=== PATIENT | female | born 1955 | race Caucasian/White ===

== ENCOUNTER 2019-06-20 04:04 | Inpatient (IN) | payer OTHER, MEDICARE ==
[~2019-06-20] VITALS: Ht 167.6 cm; Wt 90.7 kg
--- NOTE | ~2019-06-20 | HC ---
[facility] [place] [address] CONSULTATION Name: FANNY LUCIA Stevo Room #: 460-P [facility] IN .R.#: [id number] Admission: 06/20/19 Attend Phys: Mehdi Rogel MD Discharge: Date of : 53 Report #: [id number] THIS REPORT FOR: //name// CC: Mehdi Rogel REASON FOR CONSULTATION: End-stage renal disease. REASON FOR PRESENTATION: Abdominal pain. HISTORY OF PRESENT ILLNESS: A 64-year-old with history of end-stage renal disease. She is maintained on hemodialysis every Sunday, Sunday and Sunday. She presented reporting to the ER that she has been having abdominal pain with nausea and vomiting. Abdominal pain was reported to be diffuse. The patient is known to have diverticulitis, status post colostomy for perforated diverticulitis. She reported no change in her output. No fever or chills. Initial imaging of the abdomen was concerning for an intestinal obstructions for which the patient was admitted to be evaluated by the surgical team. Surgical evaluation was done. It was not felt that the patient is in need for any surgical intervention. NG tube was placed. I am being consulted to manage the patient's end-stage renal disease. PAST MEDICAL HISTORY: Extensive and includes the followin. End-stage renal disease, maintained on hemodialysis every Sunday, Sunday and Sunday. 2. History of systemic lupus erythematosus. 3. Hypertension. 4. Pulmonary embolism. 5. . 6. Ovarian biopsy. 7. Sjogren disease. 8. AV fistula. 9. Perforated diverticulitis, status post colostomy. SOCIAL HISTORY: She resides at the [facility]. No reported drug or alcohol abuse. FAMILY HISTORY: No known chronic kidney disease in the family. ALLERGIES: SULFA. MEDICATIONS: Currently the patient is maintained on: 1. Cetirizine. 2. Amlodipine. 3. Losartan. 4. Trazodone. 5. Levothyroxine. 6. Sevelamer. [facility] [address] [place] [address] CONSULTATION Name: FANNY LUCIA Room #: 460-[facility] IN [facility].#: [id number] Admission: 06/20/19 Attend Phys: Mehdi Rogel MD Discharge: Date of : 53 Report #: [id number] 7. Epoetin michelle. REVIEW OF SYSTEMS: GENERAL: No fever or chills. CARDIOVASCULAR: No chest pain or palpitation. PULMONARY: No cough or hemoptysis. GASTROINTESTINAL: As per the history of present illness. GENITOURINARY: No frequency. No urgency. PHYSICAL EXAMINATION: VITAL SIGNS: Temperature 37, blood pressure 136/66. HEAD AND NECK: No jugular venous distention. CHEST: No crackles. CARDIOVASCULAR: Regular with no rub. ABDOMEN: Colostomy present with good output. LOWER EXTREMITIES: No edema. LABORATORY DATA: Reviewed. Hemoglobin is 12, white blood cell count is 9.5. Sodium is 133, potassium is 5.1, BUN is 22, creatinine is 4.6. Alkaline phosphatase is elevated at 381. IMPRESSION AND PLAN: 1. End-stage renal disease. 2. Small-bowel obstruction. 3. Status post diverticulitis with perforation, status post colostomy in the past. 4. Hypertension. 5. Remote history of lupus. 6. Arrangement for the patient to have dialysis as usual will be made. 7. Surgical consultation. 8. NG suction. 9. Pain control. 10. We will continue to follow. By: 2 2 Joanne Linton MD /nt
[2019-06-20 04:04] VITALS: BP 162/73
[~2019-06-20 04:04] MED LIST: ADVAIR 100-501 EACH; ALDACTONE25 MG PO; ALLOPURINOL 30300 M1 PO; ALPHA LIPOIC A200 M1 PO; ATENOLOL 25 MG25 M1 PO; BIOTIN2500 MCG PO; CHERRY PO; CITRUCEL CAPLET1 TA1 PO; CLA1000 MG PO; COZAAR 25 MG TA25 M1 PO; CRANBERRY 6,001 EACH PO; CRESTOR10 MG PO; CYMBALTA60 MG PO; DEMADEX10 MG PO; ENALAPRIL MALEA20 MG PO; EVOXAC30 MG PO; FISH OIL SOFTG1 EACH PO; FLAXSEED OIL1000 MG PO; GARLIC OIL1 EACH PO; HYDROCODON-ACE1 EAC7 PO; L-LYSINE600 MG PO; LUNESTA3 MG PO; MUCINEX600 MG PO; NASONEX17 GM; NEXIUM40 MG PO; NORVASC10 MG PO; NYSTATIN 1100000 U/M SW&SWALLOW; OMEGA 3-6-9 CO1 EACH PO; PREDNISONE 1 MG1 M1 PO; PREDNISONE PO; PREVACID 30MG C30 M1 PO; PROBIOTIC FORM1 EACH PO; REQUIP 1 MG TABL1 M1 PO; RESTASIS1 EACH OPHTHALMIC; SUPER B COMPLE1 EAC2 PO; SYNTHROID100 MCG PO; SYNTHROID112 MCG PO; SYSTANE 0.3-0.1 EACH OPHTHALMIC; TRAZODONE 150150 M1 PO; TUMERIC PO; VITAMIN D-32000 UNIT PO; WELLBUTRIN XL150 M1 PO; XOPENEX HF1 UDINHALE; ZYRTEC10 M2 PO; [UNRECOGNIZED DRUG - CODE]
[2019-06-20] MEDS ORDERED: ASA81BEC PO (04:18)
[2019-06-20] MEDS ORDERED: RENAL-VITE TAB0.8 MG PO (04:20)
[2019-06-20] MEDS ORDERED: OMEPRAZOLE 20 M20 M1 PO (04:20)
[2019-06-20] MEDS ORDERED: SYSTANE 0.3-0.1 EACH OPHTHALMIC (04:22)
[2019-06-20] MEDS ORDERED: ZOLOFT50 M1 PO (04:23)
[2019-06-20] MEDS ORDERED: MIRALAX119 GM PO (04:23)
[2019-06-20] MEDS ORDERED: HYDROCODONE PO ×2 (04:28→04:29)
[2019-06-20] MEDS ORDERED: COZAAR 25 MG TA25 M2 PO (04:30)
[2019-06-20] MEDS ORDERED: ONDANSETRON HCL4 M3 PO (04:30)
[2019-06-20] MEDS ORDERED: BREO ELLIPTA 11 EACH INH (04:32)
[2019-06-20] MEDS ORDERED: ACID REDUCER20 MG PO (04:42)
[2019-06-20] MEDS ORDERED: PREGABALIN25 MG PO (04:44)
[2019-06-20] MEDS ORDERED: RENVELA0.8 GM PO (04:46)
[2019-06-20] MEDS ORDERED: MELATIN3 MG PO (04:46)
[2019-06-20] MEDS ORDERED: ARTIFICIAL TEAR15 M2 OPHTHALMIC (04:48)
[2019-06-20] MEDS ORDERED: TORSEMIDE10 MG PO (04:49)
[2019-06-20] MEDS ORDERED: TORSEMIDE20 MG PO (04:50)
[2019-06-20] MEDS ORDERED: REGLAN 10 MG TA10 MG PO (04:51)
[2019-06-20] MEDS ORDERED: NEPRO CARB STE237 ML PO (04:52)
[2019-06-20 04:53] LABS: ANION GAP 8 mmol/L (7-16); BUN 22 mg/dL (7-18); CALCIUM 9.9 mg/dL (8.5-10.1); CHLORIDE 96 mmol/L (98-107); CO2 29 mmol/L (21-32); CREATININE 4.6 mg/dL (0.6-1.0); GLUCOSE 100 mg/dL (74-106); POTASSIUM 5.1 mmol/L (3.5-5.1); SODIUM 133 mmol/L (136-145)
[2019-06-20 04:55] LABS: HEMATOCRIT 39.7 % (37.0-47.0); HEMOGLOBIN 12.1 gm/dL (12.0-15.0); MCH 26.9 pg (26.0-34.0); MCHC 30.5 g/dL (28.0-37.0); MCV 88.1 fL (80.0-100.0); PLATELET COUNT 219 thou/uL (150-400); RBC 4.51 mil/uL (4.20-5.00); WBC 9.5 thou/uL (4.0-11.0)
[2019-06-20 05:03] LABS: ALBUMIN 3.6 g/dL (3.4-5.0); DIRECT BILIRUBIN 0.1 mg/dL (<0.1-0.2); LIPASE 83 U/L (73-393); SGOT 25 U/L (15-37); SGPT 22 U/L (30-65); TOTAL BILIRUBIN 0.7 mg/dL (<0.1-1.0); TROPONIN-I <0.06 ng/mL (<0.06)
[2019-06-20 05:51] LABS: URINE BILIRUBIN NEGATIVE (Negative); URINE BLOOD 3+ (Negative); URINE CLARITY CLOUDY; URINE COLOR YELLOW; URINE GLUCOSE-RANDOM* NEGATIVE (Negative); URINE KETONES NEGATIVE (Negative); URINE NITRITE-REFLEX NEGATIVE (Negative); URINE PROTEIN (DIPSTICK) 3+ (Negative); URINE UROBILINOGEN 0.2 E.U./dl (0.2-1.0)
[2019-06-20 05:54] LABS: URINE LEUKOCYTES-REFLEX 3+ (Negative)
[2019-06-20 06:01] LABS: AMP/METHAMP Negative (Negative); BARBITURATES Negative (Negative); BENZODIAZEPINES Negative (Negative); COCAINE Negative (Negative); METHADONE Negative (Negative); OPIATES POSITIVE (Negative); PCP Negative (Negative)
[2019-06-20 06:16] LABS: BACTERIA-REFLEX 1-9 Few /HPF (None Seen); CASTS None Seen /LPF (None Seen); SQUAMOUS 0-3 Few /LPF (0-3); URINE RBC 3-10 Few /HPF (0-2); URINE WBC-REFLEX >25 Many /HPF (0-5)
[2019-06-20 06:17] LABS: CRYSTALS None Seen /LPF (None Seen); WBC CLUMPS Packed (None Seen)
[2019-06-20 06:51] VITALS: BP 172/85
--- NOTE | 2019-06-20 06:52 | NUR ---
HAND OFF TOOL PRINTED TO FLOOR
[2019-06-20 07:08] VITALS: BP 172/85
[2019-06-20 11:51] LABS: ABSOLUTE NEUTROPHILS 8.2 thou/uL (1.4-8.2); ANISOCYTOSIS 3+
[2019-06-20 11:52] LABS: OVALOCYTES FEW
--- NOTE | 2019-06-20 13:38 | EKG ---
[place] [address] [facility] [place] [address] ELECTROCARDIOGRAM REPORT Name: FANNY LUCIA Room #: 460-P ADM IN M.R.#: [id number] Admission: 06/20/19 Attend Phys: Mehdi Rogel MD Discharge: Date of : 53 Report #: [id number] THIS REPORT FOR: //name// [facility] ED Test Date: 2019-06-20 Test Time: 04:34:22 Pat Name: FANNY LUCIA Department: Room: [facility] Gender: F Credit Correspondence Clerk: hermes live rn : 1955 Requested By: Teresa Mendoza Order Number: [id number] MD: Noel Camarillo Measurements Intervals [place] Rate: 98 P: 51 ME: 176 QRS: 63 QRSD: 84 T: 73 QT: 365 QTc: 467 Interpretive Statements Sinus rhythm Abnormal R-wave progression, early transition No previous ECG available for comparison Electronically Signed On 06-20-2019 13:38:01 ORAL SURGERY TECHNICIAN by Noel Camarillo [email or web address] <ELECTRONICALLY SIGNED> By: Noel Camarillo MD, [facility] 06/20/19 1338 [id number] Noel Camarillo MD, FACC /EPI
--- NOTE | 2019-06-20 18:18 | NUR ---
ASSUMED CARE OF PATIENT AT 0800. A&OX4, VSS, PAIN IN BACK AND ABDOMEN. PATIENT HAS NG TUBE. PATIENT HAS COLOSTOMY. NO N/V/D AT THIS TIME. PATIENT REMAINS NPO. NO SIGNS OF DISTRESS. FAMILY AT BEDSIDE. WILL CONTINUE TO MONITOR.
[2019-06-20 19:31] VITALS: BP 136/66
--- NOTE | 2019-06-21 01:14 | NUR ---
PT AOX4. PT REPORTS 4/10 PAIN IN NOSE AND THROAT DUE TO NG INSERTION PROCEDURE. NG WITH INTERMITTENT SUCTION, SCANT OUTPUT. PT REPORTS GENERALIZED WEAKNESS, ABLE TO REPOSITION INDEPENDENTLY. PT REPORTS NAUSEA, NO EPISODES OF VOMITTING. PT TAKING PRN MORPHINE IV Q4HR AND PRN ZOFRAN IV Q6HR. PT NPO, MOUTH LOZENGES USED TO MOISTURIZE MOUTH. PT CONTINUES ON BEDREST, EXTERNAL FEMALE CATHETER APPLIED. PT ENCOURAGED TO NOTIFY STAFF FOR ALL NEEDS. CALL LIGHT WITHIN REACH, BED IN LOWEST POSITION, BED ALARM ON. WILL CONTINUE TO MONITOR.
[2019-06-21 07:35] VITALS: BP 142/76
[2019-06-21 16:19] VITALS: BP 125/69
--- NOTE | 2019-06-21 18:05 | NUR ---
Assumed pt care at 7am.Pt in bed resting with ng on at lis at the beginning of shift.Assessment completed. vss.Dr Holder here,order noted.Pt left for abdominal xray and returned to room early this shift.Ng clamped and clear liq tray given and well tolerated.Completed bath and bed change done.Pt up in chair for over 2 hours today and good endurance noted.Will continue to monitor.
[2019-06-21 19:28] VITALS: BP 120/76
--- NOTE | 2019-06-22 04:27 | NUR ---
ASSUMED CARE AROUND 191. AXOX4. COLOSTOMY INTACT, NGT INTACT CLAMPED, NO N/V NOTED OR REPORTED AT THIS TIME. KARIE HD ACCESS POSITIVE B/T. IV REPLACED. NO S/S ACUTE DISTRESS NOTED OR REPORTED AT THIS TIME. WILL CONT TO MONITOR FOR ANY CHANGES IN CONDITION.
[2019-06-22 07:46] VITALS: BP 157/83
[2019-06-22 16:10] VITALS: BP 134/73
[2019-06-22 19:32] VITALS: BP 111/68
--- NOTE | 2019-06-22 20:08 | NUR ---
PT A&OX4, VSS, GENERAL PAIN. PATIENT TOLERATED RENAL DIET. NG TUBE REMOVED PER ORDERS. NO SIGNS OF DISTRESS. PATIENT RESTED IN BED THROUGHOUT DAY. WILL CONTINUE TO MONITOR.
--- NOTE | 2019-06-23 03:17 | NUR ---
Assumed pt care of 1915. pt a&o but forgetful at times. pt transfers with 1 assist with a wheelchair to the bathroom. pain controlled with current pain regimen. pt c/o of itching in her hands. hands washed and lotioned and pt stated some inprovement. pt had 50ml of cream white urine in the bathroom. pt has a scheduled dialysis for today 06/23. no s/s of distress. will cont to monitor
[2019-06-23 08:30] VITALS: BP 106/64
--- NOTE | 2019-06-23 10:38 | NUR ---
DISCHARGE PLANNING. PATIENT RESIDES AT [facility], [facility]. PLAN IS FOR PATIENT TO RETURN TO [facility] ONCE MEDICALLY READY. CLINICAL UPDATES FAXED TO [facility]. CALL PLACED TO PAULINE TO NOTIFY. FOLLOWING.
--- NOTE | 2019-06-23 14:21 | NUR ---
PT ADMITTED RELATED TO SBO. CM REVIEWED CHART AND SPOKE WITH CARE TEAM. CM MET WITH PT AT BEDSIDE THIS DAY. CM ROLE INTRODUCED. PT INDICATED SHE LIVES AT [facility] IN [place] SHE INDICATED SHE HAS LIVES THERE AROUND 3 YRS. PT INDICATED SHE USES A FWW AND A WHEELCHAIR TO ASSIT WITH MOBILITY TIMBER CUTTER. PT INDICATED SHE HAS DIALYSIS AT [facility] PT INDICATED SHE PLANS TO RETURN TO [facility] ONCE MEDICALLY STABLE. DR. CANNON INDICATED THAT PT IS MEDICALLY STABLE TO RETURN TO THE FACILITY AFTER DIALYSIS THIS DAY. DC ELECTRICIAN WIRING TO NOTIFY FACILITY. CM TO NOTIFY PT'S SON. CM TO FOLLOW INDICATED TO FACILITATE PT'S DISCHARGE.
--- NOTE | 2019-06-23 18:34 | NUR ---
PT A&OX4, VSS, GENERAL PAIN. PATIENT COMPLETED DIALYSIS, 2500ML TAKEN OFF. NO SIGNS OF DISTRESS. PATIENT DISCHARGED TO FACILITY, IV REMOVED, ALL BELONGINGS WITH PATIENT. PATIENT GOING HOME TO [facility].
[2019-06-23 19:26] VITALS: BP 100/53
--- NOTE | 2019-06-23 19:32 | NUR ---
PT WAS SUPPOSED TO DISCHARGE TODAY AT 1830. PT BEGAN TO HAVE ACTIVE VOMITING AT THAT TIME. PATIENT WAS REMOVED FROM SYSTEM. CALLED AND IS OK WITH PATIENT STAYING ANOTHER NIGHT. MODEL MAKER APPRENTICE AWARE AND WILL REINSTATE ORDERS. ZOFRAN GIVEN, EMESIS COLOR GREEEN/BROWN AND CHUNKY. PT VSS STABLE , NO SIGNS OF DISTRESS. WILL CONTINUE TO MONITOR.
--- NOTE | 2019-06-24 04:04 | NUR ---
ASSUMED CARE OF PT AT 1900HRS. PT IS AOX4 WITH SOME FORGETFULNESS. FALL PRECAUTION IN PLACE. PT COMPLETED DIALYSIS AT THE BEGINNING OF THIS SHIFT. 2500ML REMOVED DURING DIALYSIS. PT WAS SUPPOSED TO BE DISCHARGED BUT HAD AN EMISIS EPISODE AND WAS ADVISED TO STAY ONE MORE NIGHT. PT HAS A COLOSTOMY BAG AND NO OUTPUT OTHER THAN GAS NOTED. PT REPORTED SOME PAIN AND WAS TREATED WITH PRN PAIN MEDS. PT WAS ABLE TO GET COMFORTABLE AND SLEEP PART OF THE SHIFT. VSS AND NO S/S OF ACUTE DISTRESS. WILL CONTINUE TO MONITOR.
[2019-06-24 07:35] VITALS: BP 103/58
--- NOTE | 2019-06-24 12:43 | NUR ---
Received awake on bed. Due medications given as prescribed, able to swallow meds w/o difficulty. On room air. Vital signs stable. On renal diet- encouraged and assisted in eating and drinking. With fistula at L upper arm- dressing intact; on dialysis -. With SL at R Fa- intact. With colostomy- intact, Dr Rogel informed that pt does not have an output for 2 days already as per weight shifter nurse- Called answering service, informed him as well re: no vomiting episodes since last night, awaiting call back. Visited by relative today. Falls bundle in place. Turned on her sides regularly. Pt very keen to go home, informed her that we will let physician know and wait for his orders.
[2019-06-24 15:36] VITALS: BP 101/54
--- NOTE | 2019-06-24 16:37 | NUR ---
PT IS TO DC BACK TO [facility] THIS DAY. TRANSPORT ARRANGED FOR 1800. PT'S FAMILY IS AWARE. FACILITY HAS ORDERS. CALL REPORT TO [facility] CONTACT NUMBER [phone] FAX [phone]. NO OTHER CM INTERVENTION INDICATED. CASE CLOSED.
== END 2019-06-24 19:31 | DRG 388 ==
LOC: ER 04:04 → 4W 06:39 → EROBS 06:39 → 4W 07:54
PROVIDERS: Emergency Medicine; ADMIT Internal Medicine
PROC: 0D9680Z Drainage of Stomach with Drainage Device, Via Natural or Artificial Opening Endoscopic (ICD-10-PCS; principal; 2019-06-20)
PROC: 5A1D70Z Performance of Urinary Filtration, Intermittent, Less than 6 Hours Per Day (ICD-10-PCS; 2019-06-23)
DX: K56.609 Unspecified intestinal obstruction, unspecified as to partial versus complete obstruction (principal); N18.6 End stage renal disease; I12.0 Hypertensive chronic kidney disease with stage 5 chronic kidney disease or end stage renal disease; M32.9 Systemic lupus erythematosus, unspecified; G89.29 Other chronic pain; M10.9 Gout, unspecified; N80.9 Endometriosis, unspecified; M79.7 Fibromyalgia; M35.00 Sjogren syndrome, unspecified; J45.909 Unspecified asthma, uncomplicated; R09.1 Pleurisy; G62.9 Polyneuropathy, unspecified; E78.00 Pure hypercholesterolemia, unspecified; E03.9 Hypothyroidism, unspecified; G25.81 Restless legs syndrome; K58.9 Irritable bowel syndrome, unspecified; F32.9 Major depressive disorder, single episode, unspecified; K21.9 Gastro-esophageal reflux disease without esophagitis; Z90.49 Acquired absence of other specified parts of digestive tract; Z87.440 Personal history of urinary (tract) infections; Z87.01 Personal history of pneumonia (recurrent); Z86.711 Personal history of pulmonary embolism; Z79.01 Long term (current) use of anticoagulants; Z79.82 Long term (current) use of aspirin; Z79.891 Long term (current) use of opiate analgesic; Z79.899 Other long term (current) drug therapy; Z91.040 Latex allergy status; Z88.0 Allergy status to penicillin; Z88.2 Allergy status to sulfonamides; Z91.048 Other nonmedicinal substance allergy status; Z87.891 Personal history of nicotine dependence; Z99.2 Dependence on renal dialysis; Z93.3 Colostomy status
CPT/HCPCS: 10040; 32100

== ENCOUNTER 2020-06-10 11:29 | Emergency (ER) | payer OTHER, MEDICARE ==
[~2020-06-10] VITALS: Ht 167.6 cm; Wt 79.4 kg
[2020-06-10 11:29] VITALS: BP 138/89
[~2020-06-10 11:29] MED LIST changes: +ACID REDUCER20 MG PO; +ARTIFICIAL TEAR15 M2 OPHTHALMIC; +ASA81BEC PO; +BREO ELLIPTA 11 EACH INH; +COZAAR 25 MG TA25 M2 PO; +HYDROCODONE PO; +MELATIN3 MG PO; +MIRALAX119 GM PO; +NEPRO CARB STE237 ML PO; +OMEPRAZOLE 20 M20 M1 PO; +ONDANSETRON HCL4 M3 PO; +PREGABALIN25 MG PO; +REGLAN 10 MG TA10 MG PO; +RENAL-VITE TAB0.8 MG PO; +RENVELA0.8 GM PO; +TORSEMIDE10 MG PO; +TORSEMIDE20 MG PO; +ZOLOFT50 M1 PO
[2020-06-10] MEDS ORDERED: LIPITOR 20 MG T20 M1 PO (11:41)
[2020-06-10] MEDS ORDERED: VITAMIN C500 M2 PO (11:42)
[2020-06-10] MEDS ORDERED: BIOTIN1 MG PO (11:42)
== END 2020-06-10 15:20 ==
LOC: ER 11:29
DX: S01.81XA Laceration without foreign body of other part of head, initial encounter (principal); M79.645 Pain in left finger(s); I12.9 Hypertensive chronic kidney disease with stage 1 through stage 4 chronic kidney disease, or unspecified chronic kidney disease; N18.9 Chronic kidney disease, unspecified; J45.909 Unspecified asthma, uncomplicated; E03.9 Hypothyroidism, unspecified; F32.9 Major depressive disorder, single episode, unspecified; G62.9 Polyneuropathy, unspecified; K21.9 Gastro-esophageal reflux disease without esophagitis; M79.7 Fibromyalgia; E78.00 Pure hypercholesterolemia, unspecified; Z98.890 Other specified postprocedural states; Z79.899 Other long term (current) drug therapy; Z79.82 Long term (current) use of aspirin; Z88.8 Allergy status to other drugs, medicaments and biological substances; Z88.0 Allergy status to penicillin; Z91.048 Other nonmedicinal substance allergy status; Z88.2 Allergy status to sulfonamides; Z91.041 Radiographic dye allergy status; Z87.891 Personal history of nicotine dependence; W19.XXXA Unspecified fall, initial encounter; Y93.89 Activity, other specified; Y92.098 Other place in other non-institutional residence as the place of occurrence of the external cause; Y99.8 Other external cause status

== ENCOUNTER 2020-06-18 19:35 | Inpatient (IN) | payer OTHER, MEDICARE ==
[~2020-06-18] VITALS: Ht 167.6 cm; Wt 80.5 kg
[~2020-06-18 19:35] MED LIST changes: +BIOTIN1 MG PO; +LIPITOR 20 MG T20 M1 PO; +VITAMIN C500 M2 PO
[2020-06-18 19:36] VITALS: BP 136/65
[2020-06-18 20:25] LABS: URINE BILIRUBIN NEGATIVE (Negative); URINE BLOOD 3+ (Negative); URINE CLARITY CLOUDY; URINE COLOR YELLOW; URINE GLUCOSE-RANDOM* NEGATIVE (Negative); URINE KETONES NEGATIVE (Negative); URINE NITRITE-REFLEX NEGATIVE (Negative); URINE PROTEIN (DIPSTICK) 2+ (Negative); URINE UROBILINOGEN 0.2 E.U./dl (0.2-1.0)
[2020-06-18 20:27] LABS: ABSOLUTE NEUTROPHILS 8.8 thou/uL (1.4-8.2); BASOPHILS 0.2 % (0.0-2.0); HEMOGLOBIN 9.5 gm/dL (12.0-15.0); LYMPHOCYTES 2.6 % (24.0-44.0); MCH 29.9 pg (26.0-34.0); MCHC 31.5 g/dL (28.0-37.0); MCV 94.9 fL (80.0-100.0); MONOCYTES 6.6 % (1.0-8.0); PLATELET COUNT 176 thou/uL (150-400); POLYS 90.6 % (36.0-66.0); RBC 3.17 mil/uL (4.20-5.00); RDW 16.4 % (10.5-14.5); WBC 9.7 thou/uL (4.0-11.0)
[2020-06-18 20:37] LABS: CALCIUM 9.1 mg/dL (8.5-10.1); CREATININE 3.5 mg/dL (0.6-1.0); POTASSIUM 4.1 mmol/L (3.5-5.1)
[2020-06-18 20:38] LABS: URINE LEUKOCYTES-REFLEX 3+ (Negative)
[2020-06-18 20:42] LABS: ALBUMIN 2.3 g/dL (3.4-5.0); TOTAL BILIRUBIN 0.6 mg/dL (0.2-1.0)
[2020-06-18 20:52] LABS: BACTERIA-REFLEX >30 Many /HPF (None Seen); CASTS None Seen /LPF (None Seen); CRYSTALS None Seen /LPF (None Seen); MUCUS 0-3 Light strn/LPF (None Seen); RENAL EPITHELIAL CELLS 0-3 Few /LPF (None Seen); SQUAMOUS None Seen /LPF (0-3); TRANSITIONAL EPITHEL CELL 4-10 Moderate /LPF (None Seen); URINE RBC 0-2 Rare /HPF (0-2); URINE WBC-REFLEX >25 Many /HPF (0-5)
[2020-06-18 20:52] LABS: INR 1.2; PROTIME 12.4 Seconds (9.3-11.4)
[2020-06-18] MEDS ORDERED: B COMPLEX1 EACH PO (21:54)
[2020-06-18] MEDS ORDERED: BIOTIN1000 MCG PO (21:55)
[2020-06-18] MEDS ORDERED: BREO ELLIPTA 11 EACH INH (21:56)
[2020-06-18] MEDS ORDERED: FOLIC ACID0.8 M1 PO (21:59)
[2020-06-18] MEDS ORDERED: HYDROCODON-ACE1 EAC8 PO (22:00)
[2020-06-18] MEDS ORDERED: HYDROCODONE-AP1 EA11 PO (22:01)
[2020-06-18] MEDS ORDERED: SENNA LAXATIVE8.6 MG PO (22:04)
[2020-06-18] MEDS ORDERED: SYNTHROID125 MC1 PO (22:05)
[2020-06-18] MEDS ORDERED: LYSINE500 MG PO (22:08)
[2020-06-18] MEDS ORDERED: RENAL-VITE TAB0.8 MG PO (22:11)
[2020-06-19] MEDS ORDERED: BUPROPION XL300 MG PO (01:20)
[2020-06-19] MEDS ORDERED: BUPROPION HCL150 MG PO (03:52)
[2020-06-19 06:20] LABS: HEMOGLOBIN 8.5 gm/dL (12.0-15.0); MCH 30.1 pg (26.0-34.0); MCHC 31.4 g/dL (28.0-37.0); RBC 2.81 mil/uL (4.20-5.00); RDW 16.5 % (10.5-14.5); WBC 7.3 thou/uL (4.0-11.0)
[2020-06-19 07:16] LABS: ALBUMIN 2.1 g/dL (3.4-5.0); POTASSIUM 3.4 mmol/L (3.5-5.1); TOTAL BILIRUBIN 0.4 mg/dL (0.2-1.0); TOTAL PROTEIN 6.2 g/dL (6.4-8.2)
[2020-06-19 16:35] VITALS: BP 115/52
[2020-06-19 17:12] VITALS: BP 115/52
[2020-06-19 18:11] VITALS: BP 116/52
[2020-06-19 19:14] VITALS: BP 126/71
--- NOTE | 2020-06-19 22:19 | NUR ---
PT RESTING IN BED WATCHING TV. O2 PER NC, CRACKLES LOOSE COUGH. PT HAS FLAT AFFECT, LARGE FACIAL BRUISING WITH RAISED HEMATOMA AND SUTURES FROM RECENT FALLS. PT ASKED STAFF FOR PIZZA AND ICE CREAM. CHEERFUL WITH CONVERSATION. BED ALARM ON. SON CALLED FOR UPDATE.
[2020-06-20] VITALS: BP 110/52
[2020-06-20 00:01] VITALS: BP 110/52
--- NOTE | 2020-06-20 05:02 | HC ---
[facility] [place] [address] CONSULTATION Name: FANNY LUCIA Room #: 361-P [facility] IN [facility]#: [id number] Admission: 06/18/20 Attend Phys: Everett Gutiérrez MD Discharge: Date of : 53 Report #: [id number] THIS REPORT FOR: cc: Mehdi Rogel MD, Ramilo MD Barry,Layton Pérez MD ~ DATE OF SERVICE: 06/19/2020 INFECTIOUS DISEASE CONSULTATION ATTENDING PHYSICIAN: Dr. Everett Gutiérrez REASON FOR EVALUATION: Sepsis, likely secondary to complicated urinary tract infection, also was noted to have COVID positivity as of last week. HISTORY OF PRESENT ILLNESS: Chart reviewed, the patient examined. This is a 65-year-old woman with extensive medical history given her age. She has systemic lupus erythematosus, hypertension, chronic renal failure. She has been on dialysis, roughly 4 years. She is in facility, apparently had developed nausea with emesis, while there had experienced some falls as well, striking her head who concerned about deteriorating status. She was referred to the Emergency Room. On initial evaluation, chest x-ray showed some bilateral interstitial infiltrates, some hyponatremia with sodium of 129. Lactic acid 1.1. Procalcitonin 3.27, which is elevated. Urinalysis did show greater than 25 white cells. Confirmed COVID antigen test positive. Blood cultures thus far negative. She was found to be temperature of 103.2 as well on admission. Started empiric therapy with levofloxacin, vancomycin and aztreonam. She was also started on dexamethasone as well. ALLERGIES: SULFA, PENICILLIN G THAT CAUSES URTICARIA. CURRENT MEDICATIONS: Include vancomycin, pregabalin, melatonin, trazodone, atorvastatin, tramadol, bupropion, allopurinol, zinc, ascorbic acid, famotidine, ropinirole, sertraline, losartan, aspirin, amlodipine, loratadine, heparin, sevelamer, levothyroxine, dexamethasone, p.r.n. ondansetron, levofloxacin, hydrocodone. PAST MEDICAL HISTORY: Includes systemic lupus erythematosus; apparently have ____ syndrome; chronic pain issues; hypertension; end-stage renal disease, on dialysis; gout; previous history of PE; fibromyalgia; Sjogren disease; asthma; elevated cholesterol; hypothyroidism; chronic anemia; depression; reflux. SOCIAL HISTORY: Nonsmoker, no ethanol, no illicit drug use. FAMILY HISTORY: Noncontributory. [address] [address] CONSULTATION Name: FANNY LUCIA Room #: 361-P [facility] IN [facility]#: [id number] Admission: 06/18/20 Attend Phys: Everett Gutiérrez MD Discharge: Date of : 53 Report #: [id number] REVIEW OF SYSTEMS: Admits to some mild anorexia with poor p.o. intake, more recently nausea, emesis and mild dyspnea. PHYSICAL EXAMINATION: GENERAL: She appears chronically ill, undernourished. She has got extensive contusion over the right side of her face, extends to the left infraorbital area as well. She has a laceration that has been sutured over the forehead. VITAL SIGNS: T-max 103.2, pulse 85, respirations 11, blood pressure 127/57. SKIN: Warm, dry, no rashes. HEENT: She is normocephalic. Extraocular muscles are intact. NECK: Supple. LUNGS: Bilateral crackles at the bases. HEART: Regular. I do not appreciate a murmur. ABDOMEN: Mildly distended, soft, nontender. EXTREMITIES: No cyanosis. GENITOURINARY AND RECTAL: Deferred. LABORATORY DATA: Blood cultures described above. Procalcitonin elevated at 3.27. Electrolytes: Sodium 131, potassium 3.4, chloride 92, bicarbonate is 28, anion gap of 11, BUN and creatinine 20 and 2.4, glucose of 68. Albumin of 2.1, total protein 6.2. CBC: White count 7.3, H and H 8.5 and 27.0, platelets of 182. Urinalysis is greater than 25 white cells, greater than 30 bacteria. ASSESSMENT: Sepsis, likely on the basis of complicated urinary tract infection, also has pneumonitis, may well be on the basis of COVID versus secondary bacterial pneumonitis. She has received combination antibacterials. We will add a direct therapy for the COVID, single dose of remdesivir with next dialysis, add ivermectin. She is on corticosteroids and vitamins already. She remains quite tenuous at this point. Continue to monitor expectantly, support as needed. <ELECTRONICALLY SIGNED> By: Layton Kwong MD 06/20/20 0502 [phone] Layton Kwong MD /nt
[2020-06-20 06:04] LABS: ABSOLUTE NEUTROPHILS 4.5 thou/uL (1.4-8.2); BASOPHILS 0.1 % (0.0-2.0); HEMATOCRIT 25.2 % (37.0-47.0); HEMOGLOBIN 7.9 gm/dL (12.0-15.0); LYMPHOCYTES 5.1 % (24.0-44.0); MCH 30.1 pg (26.0-34.0); MCHC 31.5 g/dL (28.0-37.0); MCV 95.5 fL (80.0-100.0); MONOCYTES 6.7 % (1.0-8.0); PLATELET COUNT 180 thou/uL (150-400); POLYS 88.1 % (36.0-66.0); RBC 2.64 mil/uL (4.20-5.00); RDW 16.5 % (10.5-14.5); WBC 5.1 thou/uL (4.0-11.0)
[2020-06-20 07:30] VITALS: BP 107/54
[2020-06-20 11:30] VITALS: BP 112/59
[2020-06-20 15:48] VITALS: BP 112/56
--- NOTE | 2020-06-20 20:14 | NUR ---
RN ASSUMED PT'S CARE AT 0700AM, PT IS A&OX2 ( PERSON AND PLACE), PT CAN FOLLOW COMMANDS, PT IS ON O2 4L/MIN/NC TO KEEP O2 SAT > 94%, PT'S VS ARE STABLE, PT IS GOING TO HAVE DIALYSIS TOMORROW.
[2020-06-20 20:29] VITALS: BP 112/58
[2020-06-21 03:55] VITALS: BP 118/52
[2020-06-21 05:51] LABS: ABSOLUTE NEUTROPHILS 7.1 thou/uL (1.4-8.2); BASOPHILS 0.1 % (0.0-2.0); HEMOGLOBIN 8.1 gm/dL (12.0-15.0); LYMPHOCYTES 5.3 % (24.0-44.0); MCH 30.1 pg (26.0-34.0); MCHC 32.2 g/dL (28.0-37.0); MCV 93.6 fL (80.0-100.0); MONOCYTES 6.8 % (1.0-8.0); PLATELET COUNT 208 thou/uL (150-400); POLYS 87.8 % (36.0-66.0); RBC 2.67 mil/uL (4.20-5.00); RDW 16.6 % (10.5-14.5); WBC 8.1 thou/uL (4.0-11.0)
[2020-06-21 08:22] VITALS: BP 114/52
[2020-06-21] MEDS ORDERED: LEVOFLOXACIN750 MG PO (10:43)
[2020-06-21] MEDS ORDERED: PREDNISONE 5 MG5 M1 PO (10:47)
[2020-06-21 11:40] VITALS: BP 122/56
--- NOTE | 2020-06-21 13:31 | NUR ---
INITIAL ASSESSMENT/DISCHARGE NOTE: AMBER reviewed chart and spoke with nursing and attending physician. Pt was admitted from [facility] due to sepsis. Pt placed in Enhanced Isolation due to COVID-19. Pt is afebrile and on 4L of O2. Pt is on IV abx and IV steroids. Pt completed course of Ivermectin. Pt is a dialysis pt and goes to the onsite dialysis facility at [facility]. Pt to have dialysis today and then discharge back to [facility]. AMBER faxed clinical info and discharge orders/summary to [facility]. Spoke with Shanell in admissions to confirm info was received. Pt is currently using her skilled benefit and will return as skilled. Wheelchair van transportation scheduled for [id number] per facility's arrangements. Pt to start dialysis around 1330 today. AMBER spoke with pt via phone to discuss discharge. Introduced role of SW. Pt appears to be alert/orientated and is agreeable with returning to the facility later today. Pt asked SW to notify her son, Marcel. SW left voice message for Marcel ([phone]) to notify of pt's discharge. Nursing to call report to the facility. Chart copy requested. No additional SW needs identified at this time, but is available to assist should needs arise. [facility]---
--- NOTE | 2020-06-21 16:25 | NUR ---
PLEASANT WITH CARE AT THIS TIME. SHE WILL BE DISCHARGED AT ABOUT 7PM POST DIALYSIS. SHE IS NOW SLEEPING. WILL CONT PLAN OF CARE.
== END 2020-06-21 21:00 | DRG 871 ==
LOC: ER 19:35 → 3W 21:47 → EROBS 21:47 → 3W 06-19 17:11
PROVIDERS: Emergency Medicine; Hospitalist; Nurse Practitioner Family; ADMIT Hospitalist; ATTEND Hospitalist
PROC: 5A1D70Z Performance of Urinary Filtration, Intermittent, Less than 6 Hours Per Day (ICD-10-PCS; 2020-06-20)
PROC: 5A1D70Z Performance of Urinary Filtration, Intermittent, Less than 6 Hours Per Day (ICD-10-PCS; principal; 2020-06-21)
DX: A41.89 Other specified sepsis (principal); U07.1 COVID-19; J96.01 Acute respiratory failure with hypoxia; N18.6 End stage renal disease; J12.82 Pneumonia due to coronavirus disease 2019; N39.0 Urinary tract infection, site not specified; J44.0 Chronic obstructive pulmonary disease with (acute) lower respiratory infection; E46 Unspecified protein-calorie malnutrition; M32.9 Systemic lupus erythematosus, unspecified; M10.9 Gout, unspecified; M79.7 Fibromyalgia; M35.00 Sjogren syndrome, unspecified; G62.9 Polyneuropathy, unspecified; S01.81XA Laceration without foreign body of other part of head, initial encounter; E78.00 Pure hypercholesterolemia, unspecified; E03.9 Hypothyroidism, unspecified; D63.8 Anemia in other chronic diseases classified elsewhere; G25.81 Restless legs syndrome; K58.9 Irritable bowel syndrome, unspecified; F32.9 Major depressive disorder, single episode, unspecified; K21.9 Gastro-esophageal reflux disease without esophagitis; G89.4 Chronic pain syndrome; E66.9 Obesity, unspecified; M19.90 Unspecified osteoarthritis, unspecified site; W18.39XA Other fall on same level, initial encounter; E87.6 Hypokalemia; B96.5 Pseudomonas (aeruginosa) (mallei) (pseudomallei) as the cause of diseases classified elsewhere; Z86.711 Personal history of pulmonary embolism; Z87.440 Personal history of urinary (tract) infections; Z98.891 History of uterine scar from previous surgery; Z79.899 Other long term (current) drug therapy; Z79.82 Long term (current) use of aspirin; Z88.0 Allergy status to penicillin; Z88.2 Allergy status to sulfonamides; Z91.040 Latex allergy status; Z91.048 Other nonmedicinal substance allergy status; Z99.2 Dependence on renal dialysis; Z91.81 History of falling; Z68.28 Body mass index [BMI] 28.0-28.9, adult; Y93.89 Activity, other specified; Y92.89 Other specified places as the place of occurrence of the external cause; Y99.8 Other external cause status
CPT/HCPCS: 10879; 32100

== ENCOUNTER 2020-09-06 12:27 | Inpatient (IN) | payer OTHER, MEDICARE ==
[~2020-09-06] VITALS: Ht 167.6 cm; Wt 73.6 kg
[~2020-09-06 12:27] MED LIST changes: +B COMPLEX1 EACH PO; +BIOTIN1000 MCG PO; +BUPROPION HCL150 MG PO; +BUPROPION XL300 MG PO; +FOLIC ACID0.8 M1 PO; +HYDROCODON-ACE1 EAC8 PO; +HYDROCODONE-AP1 EA11 PO; +LEVOFLOXACIN750 MG PO; +LYSINE500 MG PO; +PREDNISONE 5 MG5 M1 PO; +SENNA LAXATIVE8.6 MG PO; +SYNTHROID125 MC1 PO
[2020-09-06 12:29] VITALS: BP 131/52
[2020-09-06 12:49] LABS: ABSOLUTE NEUTROPHILS 13.4 thou/uL (1.4-8.2); BASOPHILS 0.5 % (0.0-2.0); EOSINOPHILS 0.7 % (0.0-3.0); HEMATOCRIT 31.8 % (37.0-47.0); HEMOGLOBIN 10.2 gm/dL (12.0-15.0); LYMPHOCYTES 5.1 % (24.0-44.0); MCH 30.5 pg (26.0-34.0); MCHC 32.2 g/dL (28.0-37.0); MCV 94.6 fL (80.0-100.0); MONOCYTES 4.5 % (1.0-8.0); PLATELET COUNT 198 thou/uL (150-400); POLYS 89.2 % (36.0-66.0); RBC 3.36 mil/uL (4.20-5.00); RDW 15.8 % (10.5-14.5)
[2020-09-06 13:00] LABS: CALCIUM 8.3 mg/dL (8.5-10.1); CREATININE 7.6 mg/dL (0.6-1.0); POTASSIUM 4.1 mmol/L (3.5-5.1)
[2020-09-06 13:06] LABS: ALBUMIN 3.3 g/dL (3.4-5.0); TOTAL BILIRUBIN 0.5 mg/dL (0.2-1.0); TOTAL PROTEIN 6.5 g/dL (6.4-8.2)
[2020-09-06 13:08] LABS: URINE CLARITY CLOUDY; URINE COLOR YELLOW
[2020-09-06 13:09] LABS: URINE GLUCOSE-RANDOM* NEGATIVE (Negative); URINE KETONES NEGATIVE (Negative); URINE PROTEIN (DIPSTICK) 3+ (Negative)
[2020-09-06 13:10] LABS: URINE BILIRUBIN NEGATIVE (Negative); URINE BLOOD 2+ (Negative); URINE LEUKOCYTES-REFLEX 2+ (Negative); URINE NITRITE-REFLEX NEGATIVE (Negative); URINE UROBILINOGEN 0.2 E.U./dl (0.2-1.0)
[2020-09-06 13:12] LABS: WBC CLUMPS Packed (None Seen)
[2020-09-06 13:13] LABS: CASTS None Seen /LPF (None Seen); CRYSTALS None Seen /LPF (None Seen); SQUAMOUS None Seen /LPF (0-3); URINE RBC 3-10 Few /HPF (0-2); URINE WBC-REFLEX >25 Many /HPF (0-5)
[2020-09-06] MEDS ORDERED: RAYOS5 MG PO (13:16)
[2020-09-06] MEDS ORDERED: BREO ELLIPTA 11 EACH INH (15:29)
[2020-09-06] MEDS ORDERED: ACETAMINOPHEN650 M2 PO (15:29)
[2020-09-06] MEDS ORDERED: NORCO7.5 PO (15:30)
[2020-09-06] MEDS ORDERED: LYRICA25 MG PO (15:31)
[2020-09-06] MEDS ORDERED: FISH OIL 1,0001 EAC9 PO (15:32)
[2020-09-06] MEDS ORDERED: RENA-VITE TABL0.8 MG PO (15:32)
--- NOTE | 2020-09-06 15:46 | NUR ---
IGNITE JULISSA [phone]
[2020-09-06 16:24] VITALS: BP 140/65
[2020-09-06 16:56] VITALS: BP 145/71
--- NOTE | 2020-09-06 18:39 | NUR ---
RECEIVED PT FROM THE ED. COMPLETED ADMISSION. PT IS AXOX4, PLEASANT, GOOD HISTORIAN. VSS UPON ARRIVAL, HOWEVER PT HAS LOW GRADE FEVER OF 100.5. DR HOLDEN CALLED. PT MISSED SCHEDULED DIALYSIS, WILL HAVE DIALYSIS TOMORROW 09/07/2020. NEPHROLOGY CONSULTED. POC IS TO CONTINUE ABX THERAPY; MONITOR FEVER. PT HAS WEAKNESS, NORMALLY USES WALKER/WHEEL CHAIR AT SNF; FALL PRECAUTIONS IN PLACE. NO CONCERNS AT THIS TIME.
[2020-09-07] VITALS: BP 135/80
--- NOTE | 2020-09-07 06:00 | NUR ---
PT AWAKE AND ALERT. SLEPT AT INTERVALS. TONIGHT. WILL HAVE DIALYSIS TODAY PROGRESSING TOWARD GOALS
[2020-09-07 07:38] VITALS: BP 130/59
[2020-09-07 11:35] VITALS: BP 132/59
--- NOTE | 2020-09-07 13:40 | NUR ---
PT IS AXOX4, PLEASANT. VSS, AFEBRILE. PT HAD SOME NAUSEA IN AM, EMESIS. NEPHRO CONSULTED. PT HAD DIALYSIS THIS PM. POC IS TO CONTINUE ABX THERAPY, DIALYZE IN AM TO GET PT BACK ON SCHEDULE. FALL PRECAUTIONS IN PLACE. NO CONCERNS AT THIS TIME.
--- NOTE | 2020-09-07 16:05 | NUR ---
Met with patient who admits from [facility]. Patient has been at [facility] since 2016. She reports at end of month she is moving to [facility] Assisted living. Patient admits with urosepsis and fever. She dializes MWF at [facility]. She reports facility assisting with her transition to community dialysis. Sp with admissions at [facility]. Liz, admissions reports that is plan for [facility]. They did notify [facility] of patients hospital admission. patient likely dc to [facility] with skilled rehab prior to move to assisted living. Patient has vaccines and recovered from COVID Apr/May.
--- NOTE | 2020-09-07 16:31 | NUR ---
FAXED CLINICAL UPDATE TO [facility] RECEIVED CONFIRMATION AND SPOKE WITH SONAM IN ADM.
[2020-09-08 03:46] VITALS: BP 143/66
[2020-09-08 05:42] LABS: ABSOLUTE NEUTROPHILS 5.6 thou/uL (1.4-8.2); BASOPHILS 0.6 % (0.0-2.0); HEMATOCRIT 30.1 % (37.0-47.0); HEMOGLOBIN 9.5 gm/dL (12.0-15.0); MCH 30.2 pg (26.0-34.0); MCHC 31.7 g/dL (28.0-37.0); MCV 95.3 fL (80.0-100.0); MONOCYTES 8.5 % (1.0-8.0); PLATELET COUNT 162 thou/uL (150-400); POLYS 76.9 % (36.0-66.0); RBC 3.15 mil/uL (4.20-5.00); RDW 16.7 % (10.5-14.5); WBC 7.3 thou/uL (4.0-11.0)
--- NOTE | 2020-09-08 06:53 | NUR ---
PATIENTS CARES WERE ASSUMED AT SHIFT CHANGE. PATIENT WAS ASSESSED AND MEDS WERE PASSED. PATIENT HAD NO REQUEST THIS SHIFT. NO C/O PAIN. LIGHT SLEEPER. PATIENT KEEPS HER TV ON ALL NIGHT. NURSING ATTEMPTED SEVERAL TIMES TO TURN OFF AND WAS NOT SUCCESFUL. ROUNDS WERE DONE. LABS WERE DONE. WILL PASS TO DAY NURSE ON REPORT, PATIENT HAS BEEN AFEBRILE.
[2020-09-08 12:02] VITALS: BP 135/73
[2020-09-08 15:25] VITALS: BP 143/72
[2020-09-08 19:37] VITALS: BP 141/61
[2020-09-09 04:40] VITALS: BP 136/58
[2020-09-09 07:40] VITALS: BP 147/81
[2020-09-09] MEDS ORDERED: MACROBID 100 M100 M1 PO (09:05)
[2020-09-09 11:08] VITALS: BP 135/69
--- NOTE | 2020-09-09 12:42 | NUR ---
PT DISCHARGING TODAY TO [facility] SKILLED FAXED DC ORDERS/SUMMARY TO FACILITY SPOKE WITH SONAM IN ADM SHE RECEIVED ORDERS AND ARRANGED WC VAN FOR [id number] TODAY. LEFT MSG WITH PT'S SON OLU OF DC AND TIME OF TRANSPORT. UNIT NOTIFIED AND CHART COPY PER US. RN TO CALL REPORT TO [phone].
--- NOTE | 2020-09-09 14:07 | NUR ---
Pt dcing back to [facility] this afternoon under her skilled medicare benefits for therapy. She will resume dialysis there and their BEVERAGE SERVER will continue to work with pt/son on arrangements for her move to [facility] in the near future and outpt dialysis at [facility]. Chart copy ready to be sent with the pt and nursing to call report. Care team updated on dc time 4pm w/c jony. Dc master planner faxed orders and has confirmed the dc time with the pts sonRowan Reece in admissions updated this am and pt does not need a covid test as she is recently recovered (Elsa).
[2020-09-09 17:07] LABS: HEPATITIS B SURFACE AG Negative (Negative)
--- NOTE | 2020-09-10 10:52 | NUR ---
Note Given: Y Facility List Provided:Y Facility Sarahy: None chosen at this time Kathy Jones NP discussed BPCI with this pt 09/08/2020
== END 2020-09-09 16:07 | DRG 871 ==
LOC: ER 12:27 → EROBS 13:37 → 2N 13:37
PROVIDERS: Emergency Medicine; Internal Medicine Nephrology; ADMIT Internal Medicine; ATTEND Internal Medicine
PROC: 5A1D70Z Performance of Urinary Filtration, Intermittent, Less than 6 Hours Per Day (ICD-10-PCS; principal; 2020-09-07)
PROC: 5A1D70Z Performance of Urinary Filtration, Intermittent, Less than 6 Hours Per Day (ICD-10-PCS; 2020-09-08)
DX: A41.9 Sepsis, unspecified organism (principal); N18.6 End stage renal disease; N39.0 Urinary tract infection, site not specified; I12.0 Hypertensive chronic kidney disease with stage 5 chronic kidney disease or end stage renal disease; G89.29 Other chronic pain; F41.9 Anxiety disorder, unspecified; M19.90 Unspecified osteoarthritis, unspecified site; J45.909 Unspecified asthma, uncomplicated; E03.9 Hypothyroidism, unspecified; E78.00 Pure hypercholesterolemia, unspecified; M10.9 Gout, unspecified; G25.81 Restless legs syndrome; F32.9 Major depressive disorder, single episode, unspecified; E66.9 Obesity, unspecified; E11.42 Type 2 diabetes mellitus with diabetic polyneuropathy; D63.8 Anemia in other chronic diseases classified elsewhere; K58.9 Irritable bowel syndrome, unspecified; R53.81 Other malaise; M32.9 Systemic lupus erythematosus, unspecified; E11.22 Type 2 diabetes mellitus with diabetic chronic kidney disease; K21.9 Gastro-esophageal reflux disease without esophagitis; Z93.3 Colostomy status; Z86.711 Personal history of pulmonary embolism; Z86.16 Personal history of COVID-19; Z88.0 Allergy status to penicillin; Z88.2 Allergy status to sulfonamides; Z88.8 Allergy status to other drugs, medicaments and biological substances; Z88.1 Allergy status to other antibiotic agents; Z91.040 Latex allergy status; Z87.891 Personal history of nicotine dependence; Z90.49 Acquired absence of other specified parts of digestive tract; Z68.26 Body mass index [BMI] 26.0-26.9, adult; Z79.82 Long term (current) use of aspirin; Z79.899 Other long term (current) drug therapy; Z79.52 Long term (current) use of systemic steroids; Z99.2 Dependence on renal dialysis
CPT/HCPCS: 10081; 32100

== ENCOUNTER 2020-11-15 19:41 | Inpatient (IN) | payer OTHER, MEDICARE ==
[~2020-11-15] VITALS: Ht 167.6 cm; Wt 73.1 kg
--- NOTE | ~2020-11-15 | EMS ---
[address] [address] EMS Patient Care Report Name: FANNY LUCIA Room #: 363-P ADM IN M.R.#: [id number] Admission: 11/15/20 Attend Phys: North Cramer MD Discharge: Date of : 53 Report #: [id number] THIS REPORT FOR: //name// Report Transmitted: 11/15/2020 22:08 EMS Care Summary [place], [place] Incident [id number] @ 11/15/2020 19:02 Incident Location [address] [place] [address] [address] Patient FANNY LUCIA Female, 65 Years 1955 Patient Address [address] [place] [id number] Patient History Lupus,Urinary Tract Infection (UTI),Anxiety,Colostomy,Tremors,Dialysis,Novel Coronavirus (COVID-19), Patient Allergies Latex allergy,Penicillin allergy,Doxycycline,Sulfa, Chief Complaint N/V Disposition Transported No Lights/[place] Reason Sick Person Transported To [facility] Narrative pt found seated in wheelchair, a&o. she states she has had N/V since last night. she is a dialysis pt and was last dialysed on Sunday 11/12. she was not dialysed today due to the holiday. pt has no abd pain. only c/o chronic neck and shoulder pain. she states she vomited approx 3-4 hrs ago and now feels like [address] [place] [address] EMS Patient Care Report Name: FANNY LUCIA Room #: 363-P ADM IN M.R.#: [id number] Admission: 11/15/20 Attend Phys: North Cramer MD Discharge: Date of : 53 Report #: [id number] she could vomit at any moment. staff reports pt has had low grade fever today of 99 and they gave her Tylenol. she req eval at [facility]. pt to [facility] [place] as listed in flow chart, transport w/o incident or change in pt condition. Initial Vitals @19:24P: 97,R: 18,BP: 160/110,Pain: 8/10,GCS: 15,Glucose: 118,CO: 3,SpO2: 92,Revised Trauma: 12, Assessments @19:13MENTAL:No Abnormalities,SKIN:HEENT:Head/Face: No Abnormalities,LUNG SOUNDS:General: Vomiting,General: Nausea,ABDOMEN:General: Vomiting,General: Nausea,PELVIS//GI:EXTREMITIES:Left Arm: Other,PULSE:Radial: 2+ Normal,NEURO:No Abnormalities, Impression Vomiting Procedures @19:13ALS AssessmentResponse: Unchanged@19:15StretcherResponse: Unchanged@19:26Zofran - 4 Milligrams (mg) - Intravenous (IV)Response: Unchanged@19:22Saline Lock 10cc (20 ga) Site: Forearm-RightResponse: UnchangedSucceeded Timeline 19:00,Call Received 19:00,Dispatch Notified 19:02,Dispatched 19:03,En Route 19:08,On Scene 19:13,At Patient 19:13,ALS Assessment,Response: Unchanged 19:15,Stretcher,Response: Unchanged 19:22,Saline Lock 10cc 20 ga Site: Forearm-Right,Response: UnchangedSucceeded, 19:24,BP: 160/110 M,PULSE: 97,RR: 18 R,SPO2: 92 Ox,ETCO2: ,B,PAIN: 8,GCS: 15, 19:26,Zofran - 4 Milligrams (mg) - Intravenous (IV),Response: Unchanged 19:30,Depart Scene 19:37,At Destination 20:12,Call Closed Disclaimer v1.1 Copyright 2020 [employer] This EMS Care Summary contains data elements from the applicable legal record (which may be displayed differently). It is designed to provide pertinent information for the following purposes: continuity of care, clinical quality, [address] [address] EMS Patient Care Report Name: FANNY LUCIA Room #: 363-P [facility] IN [facility]#: [id number] Admission: 11/15/20 Attend Phys: North Cramer MD Discharge: Date of : 53 Report #: [id number] and state data reporting. The complete legal record is available to ED staff and administrators of the receiving hospital in [employer] Patient Tracker. All data is provided "as is."
[~2020-11-15 19:41] MED LIST changes: +ACETAMINOPHEN650 M2 PO; +FISH OIL 1,0001 EAC9 PO; +LYRICA25 MG PO; +MACROBID 100 M100 M1 PO; +NORCO7.5 PO; +RAYOS5 MG PO; +RENA-VITE TABL0.8 MG PO
[2020-11-15 19:42] VITALS: BP 153/71
[2020-11-15 20:08] LABS: ABSOLUTE NEUTROPHILS 9.6 thou/uL (1.4-8.2); BASOPHILS 0.3 % (0.0-2.0); EOSINOPHILS 0.1 % (0.0-3.0); HEMATOCRIT 25.2 % (37.0-47.0); HEMOGLOBIN 8.2 gm/dL (12.0-15.0); LYMPHOCYTES 5.5 % (24.0-44.0); MCH 28.5 pg (26.0-34.0); MCHC 32.8 g/dL (28.0-37.0); MCV 86.9 fL (80.0-100.0); MONOCYTES 8.1 % (1.0-8.0); PLATELET COUNT 204 thou/uL (150-400); RDW 15.8 % (10.5-14.5); WBC 11.2 thou/uL (4.0-11.0)
[2020-11-15 20:15] LABS: CALCIUM 9.8 mg/dL (8.5-10.1); CREATININE 8.1 mg/dL (0.6-1.0)
[2020-11-15 20:21] LABS: ALBUMIN 3.2 g/dL (3.4-5.0); TOTAL BILIRUBIN 0.8 mg/dL (0.2-1.0); TOTAL PROTEIN 7.1 g/dL (6.4-8.2)
[2020-11-15 22:02] VITALS: BP 152/69
[2020-11-15 22:13] VITALS: BP 152/69
[2020-11-15] MEDS ORDERED: BREO ELLIPTA 11 EACH PO (22:33)
[2020-11-15] MEDS ORDERED: FISH OIL 1,0001 EAC9 PO (22:39)
[2020-11-15 22:40] VITALS: BP 145/69
[2020-11-15] MEDS ORDERED: VITAMIN D350 MC3 PO (22:46)
[2020-11-15] MEDS ORDERED: NORCO7.5 PO (22:50)
[2020-11-15] MEDS ORDERED: PNV 29-1 TABLE1 EACH PO (23:02)
--- NOTE | 2020-11-16 01:10 | NUR ---
PT ARRIVED VIA CART FROM ER. MED REC, CARE PLAN, AND INTERVENTIONS STARTED. CALLED CONSULT FOR RENAL. PT WAS HERE LAST IN AUGUST 2020. PT USES WHEELCHAIR AT FACILITY. PT STATES HER CHRONIC PAIN IS IN HER NECK AND CHEST FROM OSTEOARTHRITIS. TELE SHOWS SINUS TACH.
[2020-11-16 03:13] VITALS: BP 165/68
--- NOTE | 2020-11-16 04:43 | NUR ---
PT USES CALL LIGHT FREQUENTLY. STATING SHE CAN'T BREATH WITH O2 SAT AT 94 WHILE SHE HAS REMOVED THE NASAL CANNULA MULTIPLE TIMES THROUGH SHIFT. REEDUCATE PT, AND NOW SHE CAN PUT IT BACK IN HERSELF. PT VERY RESTLESS IN BED, CONSTANTLY MOVING LEGS AND ADJUSTING BED.
[2020-11-16 04:47] LABS: HEMATOCRIT 25.2 % (37.0-47.0); HEMOGLOBIN 8.3 gm/dL (12.0-15.0); MCH 28.6 pg (26.0-34.0); MCHC 32.8 g/dL (28.0-37.0); MCV 87.2 fL (80.0-100.0); RBC 2.89 mil/uL (4.20-5.00); RDW 15.7 % (10.5-14.5)
[2020-11-16 05:01] LABS: CALCIUM 9.8 mg/dL (8.5-10.1); CREATININE 8.6 mg/dL (0.6-1.0); POTASSIUM 4.2 mmol/L (3.5-5.1)
--- NOTE | 2020-11-16 07:15 | EKG ---
[address] [employer] 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: : 1955 Requested By: Destiney Roberts Order Number: [id number] MD: Willian House Measurements Intervals [place] Rate: 96 P: -76 [place]: 132 QRS: 62 QRSD: 93 T: 55 QT: 400 QTc: 506 Interpretive Statements Ectopic atrial rhythm Borderline ST depression, anterolateral leads Prolonged QT interval Compared to ECG 06/20/2019 04:34:22 Ectopic atrial rhythm now present ST (T wave) deviation now present Prolonged QT interval now present Sinus rhythm no longer present Electronically Signed On 11-16-2020 7:14:55 CDT by Willian House [email or web address] <ELECTRONICALLY SIGNED> By: Willian House MD, FACC 11/16/20 0714 40 40 Willian House MD, [facility] /EPI
[2020-11-16 07:44] VITALS: BP 151/77
--- NOTE | 2020-11-16 11:12 | NUR ---
INITIAL ASSESSMENT: Received consult. AMBER reviewed chart and spoke with nursing and attending physician. Pt was admitted from [facility] due to acute hypoxic respiratory failure. Pt with hx of ESRD and goes to outpatient dialysis at [facility]. Pt is currently on 6L of O2 and IV abx. PT/OT and HosseinN consulted. AMBER met with pt at bedside. Introduced role of SW. Pt is alert/orientated x 4. Pt reports she lives alone in an AL apt at [place]. Pt has been to [facility] in the past. Pt goes to [facility] at 1115 for dialysis. Pt is not currently on service with . Pt's PCP is Dr. Davenport. AMBER discussed possible discharge to if accepted. Pt is agreeable with plan and requests SW contact her son, Marcel, to provide an update. AMBER placed call to Marcel ([phone]). Voice mailbox is full. AMBER spoke with Pham at [facility] to notify of pt's admission. Awaiting input from [place] at this time. AMBER is following to assist as needed with discharge planning.
[2020-11-16 14:23] LABS: MAGNESIUM 1.8 mg/dL (1.8-2.4)
[2020-11-16 15:26] VITALS: BP 120/58
[2020-11-16 20:50] VITALS: BP 147/76
--- NOTE | 2020-11-17 05:02 | NUR ---
continues on 6 liters n/c. narcotic analgesic effective for pain control. resting quietly tonight.
[2020-11-17 05:18] VITALS: BP 121/63
[2020-11-17 06:13] LABS: HEMATOCRIT 22.8 % (37.0-47.0); HEMOGLOBIN 7.5 gm/dL (12.0-15.0); MCH 28.8 pg (26.0-34.0); MCHC 32.9 g/dL (28.0-37.0); MCV 87.5 fL (80.0-100.0); RBC 2.61 mil/uL (4.20-5.00); RDW 16.1 % (10.5-14.5); WBC 9.1 thou/uL (4.0-11.0)
[2020-11-17 06:42] LABS: CALCIUM 9.6 mg/dL (8.5-10.1); POTASSIUM 3.7 mmol/L (3.5-5.1)
[2020-11-17 06:46] LABS: CREATININE 4.6 mg/dL (0.6-1.0)
[2020-11-17 08:53] VITALS: BP 136/6
[2020-11-17 11:11] LABS: BE(vivo) -1.2 mmol/L (-2 to +3); HCO3 23.7 mmol/L (22.0-26.0); PO2 96.6 mmHg (80.0-100.0); sO2 97.3 % (92.0-98.0)
--- NOTE | 2020-11-17 13:43 | NUR ---
AMBER reviewed chart and spoke with nursing and attending physician. Pt is slowly progressing towards goals for discharge. Pt is now on 6L of O2. Pt is on IV abx. Plan is for pt to discharge to [facility] when medically stable. AMBER confirmed with [facility] prevocational/rehabilitation counselor. Pt will need a repeat COVID test prior to admission to [facility]. AMBER placed call to pt's son, Marcel. Voice mailbox is full. AMBER is following to assist as needed with discharge planning.
[2020-11-17 15:50] VITALS: BP 116/58
--- NOTE | 2020-11-17 18:43 | NUR ---
IVANA ASSUMED THIS AM, PT ALERT AND ORIENTED X4, FORGETFUL. COMPLAINS OF NAUSEA, ZOFRAN GIVEN PER ORDER. DIALYSIS NURSE TOOK OUT 2.5L TODAY. COLOSTOMY IN PLACE, NO STOOL IN COLOSTOMY BAG TODAY. FALL PRECAUTIONS PLACE. DENIES ANY NEEDS.
[2020-11-17 19:45] VITALS: BP 132/80
[2020-11-18 04:06] VITALS: BP 128/56
--- NOTE | 2020-11-18 04:41 | NUR ---
PROGRESS PT ALERT AND ORIENTED BUT SOMETIMES SEEMS CONFUSED OR JUST OFF. REPORTS PAIN TO ABDOMEN , BACK AND NECK AT A LEVEL OF 7 HYDROCODONE GIVEN X 2 WITH EFFECT PT SLEPT AFTER. BOWEL SOUNDS HYPOACTIVE AND COLOSTOMY EMPTY NO STOOL, OR AIR NOTED. PT HASN'T HAD ANY OUTPUT SINCE BEFORE SHE WAS ADMITTED ON 11/15. CHELO GIPSON NOTIFIED ORDER FOR MIRALAX OBTAINED AND GIVEN. IV TO RIGHT FOREARM CLOTTED OFF SO RESTARTED IN RIGHT HAND. PT SLEPT MOST OF NIGHT HAD ONE INCIDENT OF URINARY INCONTINENCE. FISTULA TO KARIE WITH GOOD BRUIT AND TRILL. CONTINUE TO MONITOR
[2020-11-18 08:28] VITALS: BP 127/61
--- NOTE | 2020-11-18 15:10 | NUR ---
AMBER reviewed chart and spoke with nursing and attending physician. Pt remains on 6L of O2. Pt is on IV abx and will have dialysis again today. Pt to have KUB today. Discharge to [facility] is anticipated for tomorrow. COVID test ordered today. SW confirmed plan with [facility] rehab rn. AMBER attempted to leave voice message for pt's son, Marcel, to provide update. Marcel's voice mailbox is full. AMBER is following to assist as needed with discharge planning.
[2020-11-18 15:46] VITALS: BP 117/67
[2020-11-19 07:58] VITALS: BP 117/89
--- NOTE | 2020-11-19 08:05 | NUR ---
PROGRESS VSS, PAIN CONTROLLED WITH HYDROCODONE PT SLEPT MOST OF NIGHT STILL NO OUTPUT IN COLOSTOMY, ATE 2 YOGURTS LAST NIGHT PT HAS HAD VERY POOR DIETARY INTAKE POSSIBLE TRANSFER TO [address] [place] [address] TODAY.
[2020-11-19 11:59] LABS: HEMOGLOBIN 8.2 gm/dL (12.0-15.0); WBC 6.1 thou/uL (4.0-11.0)
[2020-11-19 12:04] LABS: HEMATOCRIT 25.7 % (37.0-47.0); MCH 27.9 pg (26.0-34.0); MCV 87.4 fL (80.0-100.0); RBC 2.94 mil/uL (4.20-5.00); RDW 15.4 % (10.5-14.5)
[2020-11-19 12:15] LABS: CALCIUM 10.1 mg/dL (8.5-10.1); MAGNESIUM 1.9 mg/dL (1.8-2.4); POTASSIUM 3.5 mmol/L (3.5-5.1)
[2020-11-19] MEDS ORDERED: ACETAMINOPHEN325 M1 PO (13:26)
[2020-11-19] MEDS ORDERED: LEVOFLOXACIN500 MG PO (13:26)
[2020-11-19] MEDS ORDERED: PROAIR HFA8.5 GM INH (13:26)
--- NOTE | 2020-11-19 14:09 | NUR ---
DISCHARGE NOTE: AMBER reviewed chart and spoke with nursing and attending physician. Pt is medically stable for discharge to [facility] today after dialysis. AMBER met with pt at bedside to discuss discharge plan. Pt is aware and in agreement with discharge plan. AMBER spoke with pt's son, Marcel, via phone to provide update. Marcel verbalized understanding and is agreeable with discharge plan. AMBER spoke with Pham at [facility] to provide update. AMBER faxed clinical info to Pham for review. Rehab CM to follow and assist as needed with discharge planning.
== END 2020-11-19 18:26 | DRG 871 ==
LOC: ER 19:41 → 3W 21:27 → EROBS 21:27 → 3W 22:11
PROVIDERS: Nurse Practitioner Family; ADMIT Internal Medicine; ATTEND Internal Medicine
DX: A41.9 Sepsis, unspecified organism (principal); J18.9 Pneumonia, unspecified organism; J96.01 Acute respiratory failure with hypoxia; N18.6 End stage renal disease; G93.41 Metabolic encephalopathy; I12.0 Hypertensive chronic kidney disease with stage 5 chronic kidney disease or end stage renal disease; Z20.822 Contact with and (suspected) exposure to COVID-19; G89.29 Other chronic pain; E11.22 Type 2 diabetes mellitus with diabetic chronic kidney disease; F41.9 Anxiety disorder, unspecified; E78.00 Pure hypercholesterolemia, unspecified; E11.42 Type 2 diabetes mellitus with diabetic polyneuropathy; G25.81 Restless legs syndrome; F32.9 Major depressive disorder, single episode, unspecified; E03.9 Hypothyroidism, unspecified; K21.9 Gastro-esophageal reflux disease without esophagitis; D63.1 Anemia in chronic kidney disease; R53.81 Other malaise; M19.90 Unspecified osteoarthritis, unspecified site; J45.909 Unspecified asthma, uncomplicated; M10.9 Gout, unspecified; M32.9 Systemic lupus erythematosus, unspecified; K58.9 Irritable bowel syndrome, unspecified; E66.01 Morbid (severe) obesity due to excess calories; Z93.3 Colostomy status; Z86.711 Personal history of pulmonary embolism; Z86.16 Personal history of COVID-19; Z68.26 Body mass index [BMI] 26.0-26.9, adult; Z90.49 Acquired absence of other specified parts of digestive tract; Z88.0 Allergy status to penicillin; Z88.2 Allergy status to sulfonamides; Z88.8 Allergy status to other drugs, medicaments and biological substances; Z88.1 Allergy status to other antibiotic agents; Z91.040 Latex allergy status; Z87.891 Personal history of nicotine dependence; Z99.2 Dependence on renal dialysis
CPT/HCPCS: 10879; 32100

== ENCOUNTER 2020-11-18 11:31 | Inpatient (IN) | payer OTHER, MEDICARE ==
[~2020-11-18] VITALS: Ht 167.6 cm; Wt 70.3 kg
[~2020-11-18 11:31] MED LIST changes: +BREO ELLIPTA 11 EACH PO; +PNV 29-1 TABLE1 EACH PO; +VITAMIN D350 MC3 PO
[2020-11-19] MEDS ORDERED: PROAIR HFA8.5 GM INH (13:26)
[2020-11-19] MEDS ORDERED: LEVOFLOXACIN500 MG PO (13:26)
[2020-11-19] MEDS ORDERED: ACETAMINOPHEN325 M1 PO (13:26)
[2020-11-19 18:38] VITALS: BP 101/61
--- NOTE | 2020-11-19 18:41 | NUR ---
NEW ADMISSION FROM [facility]. CAME IN BED WITH HOSP STAFF. ALERT AND ORIENTATED X 3. PLESANT. REPORTED RASH UNDERNEATH BREASTS, MATTY PROCESS SAFETY SPECIALIST NOTIFIED. L AV FISTULA +/+ BRUIT AND THRILL. WAS DIALYZED SHORTLY AND 3L REMOVED FROM [facility]. VSS. DENIES ANY PAIN OR SHORT OF AIR. COLOSTOMY INTACT WITH NO OUTPUT. CALL LIGHT WITHIN REACH. QUESTIONS ANSWERED. ROOM ORIENTATION GIVEN TO PT.
[2020-11-19 19:45] VITALS: BP 112/63
--- NOTE | 2020-11-20 00:12 | NUR ---
PT ADMITTED TO [facility] THIS EVENING. VSS. ADMIT HX AND ASSESSMENT COMPLETED. DIAYSIS ACCESS DRESSING DRY AND INTACT. PRN TYLENOL GIVEN FOR NECK PAIN. MEDICATION GIVEN ORDERED. SNACK PROVIDED BEFORE BED. BG 89 AT HS. ASST WITH REPOSITION FOR COMFORT. SAT WNL ON 2L NC AT HS. PT DENIES NEEDS. SLEEPING MEDICATION GIVEN AND PT SLEEPING. WILL CONTINUE TO MONITOR FREQUENTLY.
[2020-11-20 05:07] LABS: HEMATOCRIT 26.2 % (37.0-47.0); HEMOGLOBIN 8.5 gm/dL (12.0-15.0); MCH 28.3 pg (26.0-34.0); MCHC 32.5 g/dL (28.0-37.0); MCV 87.3 fL (80.0-100.0); RDW 15.5 % (10.5-14.5); WBC 6.5 thou/uL (4.0-11.0)
[2020-11-20 05:30] LABS: CALCIUM 9.7 mg/dL (8.5-10.1); POTASSIUM 3.6 mmol/L (3.5-5.1)
[2020-11-20 05:32] LABS: CREATININE 2.8 mg/dL (0.6-1.0)
[2020-11-20 06:42] LABS: FOLIC ACID 39.4 ng/mL (8.6-58.9)
[2020-11-20 07:15] VITALS: BP 110/70
--- NOTE | 2020-11-20 08:00 | NUR ---
PT STATED SHE WASN'T COMFORTABLE IN THE BED AND WANTED TO SIT ON SIDE OF BED. PT SAT ON SIDE OF BED FOR 5 MIN. PT STATED SHE DIDN'T LIKE THE BED DUE TO FEELING THE COILS IN IT. PT LUNGS CLEAR AND ON ROOM AIR AT THIS TIME. PT HAS OXGYEN 2L NC NEEDED. PT HAS RESTLESS LEGS AND ABLE TO MOVE LEGS, NO STRENGTH AT THIS TIME PULLING SELF UP IN BED. PT HAS COLOSTOMY WITH NO OUTPUT. PT HAS FISTULA TO LEFT ARM. PT DIDN'T LIKE HER BREAKFAST TRAY, PT STATED SHE DIDN'T LIKE TONGAN MUFFIN THAT SHE GOT. TOLD PT WE WOULD GO OVER THE MENU TODAY AND FIND OUT WHAT SHE LIKES TO EAT.
--- NOTE | 2020-11-20 15:52 | NUR ---
ADM ZOFRAN 4MG SL FOR NAUSEA. PT STATED SHE GETS NAUSEATED AT TIMES. PT DIDN'T EAT LUNCH TODAY.
--- NOTE | 2020-11-20 18:06 | NUR ---
PT DID EAT JELLO AND SOME CRACKERS AND PEANUT BUTTER FOR DINNER. PT DIDN'T LIKE THE VEGE SOUP DUE TO ITS SEASONING.
[2020-11-20 20:31] VITALS: BP 107/63
--- NOTE | 2020-11-21 00:48 | NUR ---
PT ASSESSMENT COMPLETED AND VSS. MEDS GIVEN ORDERED AND WELL TOLERATED. SAT WNL ON 2L NC AT HS. ASST WITH REPOSITION FOR COMFORT. BARRIER CREAM APPLED TO SACRAL AREA. PRN TYLENOL HELPFUL FOR PAIN. LEFT UPPER ARM DIALYSIS ACCESS WNL. SLEEPING WELL AT THIS TIME. WILL CONTINUE TO MONITOR FREUQENTLY.
[2020-11-21 05:36] LABS: GLYCOHEMOGLOBIN (HGB A1C) 5.2 % (4.8-5.6)
[2020-11-21 07:15] VITALS: BP 130/69
--- NOTE | 2020-11-21 08:00 | NUR ---
PT RECIEVED BREAKFAST AND STATED IT WAS VERY GOOD. PT HAD BOILED EGG, TOAST, AND RICE KRISPIES WITH MILK. PT LYING IN BED AND EATING WELL. PT HAS COLOSTOMY TO LEFT ABD AND STILL NO OUTPUT. NO COMPLAINS OF NAUSESA OR BELCHING. PT GETS UP VIA WALKER X1 PERSON SHORT DISTANCE.
--- NOTE | 2020-11-21 09:50 | NUR ---
WENT TO ROOM TO GIVE AM MEDS. PT SLEEPING SOUNDLY. WILL CHECK BACK.
--- NOTE | 2020-11-21 11:49 | NUR ---
PT AWAKE AT THIS TIME. PT WANTED SOMETHING FOR PAIN FOR HER SHOULDERS. PT STATED SHE HAS PAIN OF 6 ON 1-10 SCALE. ADM HYDROCODONE 7.5MG PO. PT THANKED THIS ROLL FORMING SUPERVISOR FOR LETTING HER SLEEP AFTER BREAKFAST.
--- NOTE | 2020-11-21 14:15 | NUR ---
APPLIED INTERDRY FABRIC TO UNDER THE BREAST, PT HAS SOME ODOR AND REDDNESS UNDER RT BREAST, AND REDDNESS TO LEFT BREAST.
[2020-11-21 19:43] VITALS: BP 135/72
--- NOTE | 2020-11-22 00:14 | NUR ---
PT ALERT AND ORIENTED X 4. COLOSTOMY WITH SMALL AMT RAIN DISCHARGE. NO STOOL. MAG CITRATE GIVEN AT HS AND PT IS SIPPING ON IT. LUE FISTULA WITH BRUIT AND THRILL. PT C/O NAUSEA AT START OF SHIFT. ZOFRAN GIVEN. PT ABLE TO TAKE HS MEDS WITHOUT DIFFICULTY. PT DENIES PAIN OR DISCOMFORT. BED ALARM ON FOR SAFETY. PT APPEARS TO BE SLEEPING ON HOURLY ROUNDS.
[2020-11-22 08:00] VITALS: BP 115/65
--- NOTE | 2020-11-22 11:00 | NUR ---
ASSUMED CARE AT 0700. SLEPT FAIR. ALERT AND ORIENTATED X 3, FORGETFUL AT TIMES. REPORTED NECK AND RODERICK SHOULDER PAIN AT 8/10 AND TREATED WITH HYDROCODONE WITH PARTIAL RELIEF. COLOSTOMY INSITU WITH NO OUTPUT. COMPLAINED OF FEELING NAUSEATED AND HAD SMALL AMT OF CLEAR EMESIS. PT DID NOT FINISH HER MAG CITRATE FROM YESTERDAY. TODAY SHE WAS GIVEN HER MIRALAX AND LACTULOSE AND EDUCATION GIVEN REGARDING FINISHING HER STOOL REGIMEN. ABDOMEN DISTENDED, BOWEL SOUNDS HYPOACTIVE, DENIES PASSING GAS. SHE IS PARTICIPATING WITH THERAPY. PLAN FOR HD TODAY.
--- NOTE | 2020-11-22 11:11 | NUR ---
Chart review. CM visited with Makayla to introduce cm, team meeting and discharge planning. Makayla was getting ready to work with OT. Prior to hospital she resides at [facility]. Gets meals here. Can have assist with ADL's and medication if needed for additional fee. She goes to [facility] for dialysis. She has been to [facility] skilled rehab in the past. Will cont. following as needed for dc needs.
--- NOTE | 2020-11-22 13:03 | NUR ---
Nutrition: pt admitted with acute encephalopathy, debility. Consult received. PMH: ESRD, hemodialysis, lupus, HTN, NIDDM, DJD, Peripheral neuropathy. Weight entered 69# error. Pt reports UBW 165# and feels she has had stable weights. Follow trends. BG controlled, K+ WNL. Pt has been ordering meals. Questions answered re: diet restriction. Decreased appetite reported several days ago now improving. Vitamin D status pending. Will follow for adequate diet and further questions. Low risk
[2020-11-22 19:52] VITALS: BP 131/69
--- NOTE | 2020-11-23 02:01 | NUR ---
PT ASSESSMENT COMPLETED AND VSS. MEDS GIVEN ORDERED AND WELL TOLERATED. PRN PAIN MEDICATION WORKING WELL. ASST WITH REPOSITION FOR COMFORT. COLOSTOMY BAG IN PLACE. LARGE BM DURING THE DAY AND A SMALL BM AT HS. ZGUARD APPLIED TO SACRAL AREA. SAT WNL ON 2L AT HS. PT SLEEPING WELL. DIALYSIS ACCESS WNL. WILL CONTINUE TO MONITOR FREQUENTLY.
[2020-11-23 08:00] VITALS: BP 109/61
--- NOTE | 2020-11-23 08:26 | NUR ---
OSTOMY CARE; POUCH CHANGED LAST LUANA BY NIGHT RN BUT PLACED ON SIDEWAYS, CHANGED AGAIN THIS AM PLACING POUCH STRAIGHT DOWN, PT AWAKE, COOPERATIVE, DID NOT BRING SUPPLIES TO [facility], CAROLINE CUT TO FIT 2 PIECE SYSTEM APPLIED W/ ADAPT RING UNDER WAFER, PERISTOMAL SKIN INTACT, STOMA PINK VIABLE. SLIGHTLY BUDDED W/ LOOSE BROWN STOOL PRESENT, SUPPLIES PLACED AT BS, WILL CONT TO FOLLOW PRN RECOMMENDATIONS; CHANGE POUCH Q3-5DAYS AND PRN, EMPTY PRN CUSTOMS BROKERAGE AGENT AWARE
--- NOTE | 2020-11-23 11:12 | NUR ---
ASSUMED CARE AT 0700. SLEPT FAIRLY WELL. HAD A LARGE BM AT THE END OF THE SHIFT YESTERDAY. OSTOMY NURSE SAW PT TODAY AND CHANGED THE BAG. PT REFUSED HER MIRALAX BUT DID TAKE HER SENNA TODAY. APPETITE IS MUCH BETTER TODAY AND ATE ALMOST 100% OF HER MEAL THIS MORNING. PAIN IS STABLE WITH TYLENOL THIS AM. UP WITH MIN ASSIST. NYSTATIN POWDER APPLIED TO FOLDS AND SEEMS IMPROVING. PARTICIPATING WITH THERAPY. PLAN FOR HD THIS AFTERNOON. NO COMPLAINS OF FATIGUE OR SHORT OF BREATH. WILL CONT TO MONITOR.
--- NOTE | 2020-11-23 13:21 | NUR ---
Team meeting, recommendation: need to find out if she can get new wheelchair. does stand pivots. has hospital bed, [facility], will needs assist for bathing and dressing if they will assist her with dressing if needed at dc. 12/02 dc hh (pt, ot, nursing).
[2020-11-23 19:15] VITALS: BP 119/66
--- NOTE | 2020-11-23 22:30 | NUR ---
ASSUMED CARE OF PT AT 1925. PT IS A&OX4. IS ON ROOM AIR. REPORTS GENERALIZED PAIN THAT IS BEING MANAGED WITH ORAL PAIN MEDS & OTHER THERAPUETIC TECHNIQUES. IS STABLE. IS UP WITH 1 ASSIST, Vincent LOPEZ. FALL PRECAUTIONS & HOURLY ROUNDING CONTINUED THIS SHIFT. ZGAURD BIENG APPLIED TO BUTTOCKS. NYSTATIN POWDER BEING APPLIED TO FOLDS. PT HAS A COLOSTOMY THAT PT SELF MANAGES. LA AV FISTULA. THRILL PALPATED & BRUIT AUSCULTATED. DIALYSIS ORDERED TUES/THURS/SAT. LABS & VITALS REVIEWED. SLEEP AID ADMINISTERED. CALL LIGHT WITHIN REACH. PT IS IN BED, WATCHING TV AT THIS TIME. WILL CONTINUE TO MONITOR.
[2020-11-24 07:56] VITALS: BP 118/67
--- NOTE | 2020-11-24 08:56 | NUR ---
PT FINISHED WITH BREAKFAST. PT STATED SHE WANTED HARD BOILED EGGS INSTEAD OF SCRAMBLED EGGS. PT DIDN'T EAT NEW ZEALANDER MUFFIN. PT DID TAKE MEDS WHOLE WITH WATER. PT SITTING UP IN W/C THIS AM. PT STATED SHE HAS PAIN TO RT SHOULDER TODAY. PT HAS FISTULA TO LEFT UPPER ARM. PT HAS COLOSTOMY, NO BM SINCE 11/23. PT ON ROOM AIR, LUNGS CLEAR. PT UP X1 ASSIST.
[2020-11-24 19:33] VITALS: BP 135/71
--- NOTE | 2020-11-24 23:56 | NUR ---
PT ASSESSMENT COMPLETED AND VSS. MEDS GIVEN ORDERED AND WELL TOLERATED. FALL PRECAUTIONS IN PLACE. ASST WITH REPOSITION FOR COMFORT. ZGUARD APPLIED TO SACRAL AREA. PRN PAIN AND SLEEP MEDICATION HELPFUL. DIALYSIS ACCESS WNL. SAT WNL ON 2L NC AT HS. PT DENIES NEEDS AT THIS TIME. WILL CONTINUE TO MONITOR FREQUENTLY.
[2020-11-25 08:00] VITALS: BP 121/61
--- NOTE | 2020-11-25 11:00 | NUR ---
ASSUMED CARE AT 0700. ALERT AND ORIENTATED X 3, FORGETFUL. REPORTED PAIN IN SHOULDER AND NECK AND TREATED WITH HYDROCODONE WITH GOOD RELIEF. APPETITE IS IMPROVING, HAD A SMALL AMOUT OF STOOL IN COLOSTOMY. UP WITH MIN ASSIST. PARTICIPATES WITH THERAPY. HD TODAY. AV SHUNT WITH POSITIVE THRILL AND BRUIT. 2.5L REMOVED TODAY. PT TOLERATED HD. NO OTHER NEW CONCERNS.
--- NOTE | 2020-11-25 12:26 | NUR ---
PATIENT WEARS 2L OF OXYGEN AT NIGHT
[2020-11-25 19:29] VITALS: BP 104/63
--- NOTE | 2020-11-25 23:39 | NUR ---
PT ALERT AND ORIENTED X 4, FORGETFUL. AT START OF SHIFT, FOUND PT ATTEMPTING TO GET FROM W/C TO BED WITHOUT ASSISTANCE. PT INSTRUCTED TO CALL FOR ASSISTANCE WHEN GETTING UP. 02 ON AT 2L PER NC. LEFT ARM FISTULA WITH BRUITT AND THRILL. COLOSTOMY INTACT WITH SMALL AMT LOOSE BROWN STOOL. PT C/O PAIN IN HER LEFT SHOULDER. HYDROCODONE GIVEN AT HS AND PT SLEEPING UPON REASSESSMENT. BED ALARM ON FOR SAFETY. PT APPEARS TO BE SLEEPING ON HOURLY ROUNDS.
[2020-11-26 04:57] LABS: ABSOLUTE NEUTROPHILS 3.1 thou/uL (1.4-8.2); BASOPHILS 0.7 % (0.0-2.0); EOSINOPHILS 1.6 % (0.0-3.0); HEMATOCRIT 24.8 % (37.0-47.0); HEMOGLOBIN 8.2 gm/dL (12.0-15.0); LYMPHOCYTES 20.7 % (24.0-44.0); MCH 28.5 pg (26.0-34.0); MCHC 32.8 g/dL (28.0-37.0); MCV 86.7 fL (80.0-100.0); MONOCYTES 12.6 % (1.0-8.0); PLATELET COUNT 254 thou/uL (150-400); POLYS 64.4 % (36.0-66.0); RBC 2.87 mil/uL (4.20-5.00); RDW 15.7 % (10.5-14.5); WBC 4.9 thou/uL (4.0-11.0)
[2020-11-26 05:08] LABS: CALCIUM 9.5 mg/dL (8.5-10.1); CREATININE 4.2 mg/dL (0.6-1.0); POTASSIUM 4.9 mmol/L (3.5-5.1)
[2020-11-26 07:15] VITALS: BP 104/67
--- NOTE | 2020-11-26 07:26 | NUR ---
OSTOMY CARE; RESTING IN BED, ALERT, COOPERATIVE, POUCH ON X 4 DAYS, CHANGED USING 2 PIECE SYSTEM CAROLINE CUT TO FIT, STOMA PINK VIABLE FLAT W/ SKIN SURFACE, SMALL AMT LOOSE BROWN STOOL NOTED, PERISTOMAL SKIN INTACT, SUPPLIES AT BS, ENCOURAGED PT TO PARTICIPATE IN OSTOMY CARE RECOMMENDATIONS; CHANGE POUCH Q 3-5 DAYS AND PRN, EMPTY PRN BENCH MOLDER AWARE
--- NOTE | 2020-11-26 08:43 | NUR ---
PT UP IN W/C THIS AM, PT DENIES ANY PAIN TO SHOULDERS. PT LUNGS CLEAR AND ON ROOM AIR. PT HAS COLOSTOMY TO LEFT QUADRANT. PT STATED SHE DIDN'T WANT TO DRINK LACTULOSE THIS AM, PT DID TAKE SENNACOT. PT TOOK MEDS WHOLE WITH WATER. PT HAS FISTULA LUE. Z-GAURD TO BUTTOCKS AND ALSO NYSTATIN POWER UNDER BREAST BILAT.
--- NOTE | 2020-11-26 13:58 | NUR ---
ADM HYDROCODONE 7.5MG PO FOR LOWER BACK PAIN OF 6 ON 1-10 SCALE. PT IN BED AT THIS TIME.
[2020-11-26 20:17] VITALS: BP 127/65
--- NOTE | 2020-11-26 23:35 | NUR ---
PT ASSESSMENT COMPLETED AND VSS. MEDS GIVEN ORDERED AND WELL TOLERATED. FALL PRECAUTIONS IN PLACE. ASST WITH REPOSITION FOR COMFORT. PRN PAIN MEDICATION WORKING WELL. DIALYSIS ACCESS WNL. PT DENIES NEEDS. SLEEPING WELL. WILL CONTINUE TO MONITOR FREQUENTLY.
[2020-11-27 08:00] VITALS: BP 110/60
--- NOTE | 2020-11-27 10:24 | NUR ---
ASSUMED CARE AT 0700. PATIENT IS CONFUSED. PATIENT MOVES FROM BED TO W/C BY STAND , PIVOT, SIT. LUNGS ARE DEMINISHED. ABD IS SOFT WITH BSX4. PATIENT IS ON HEMODIALYSIS AND WILL HAVE DIALYSIS TODAY. PATIENT VOIDS OCCASIONALLY. PATIENT HAS COLOSTOMY. BAG CHANGED TODAY. PATIENT HAD BM TODAY. PATIENT HAS LEFT UPPER ARM FISTULA ACCESS FOR DIALYSIS. UP IN CHAIR FOR BREAKFAST. FALL AND SAFETY PROTOCOLS IN PLACE. DENIES PAIN AT THIS TIME. CONTINUES TO PROGRESS SLOWLY TOWARDS D/C GOALS. WILL CONTINUE TO MONITER.
[2020-11-27 19:45] VITALS: BP 110/66
--- NOTE | 2020-11-28 03:18 | NUR ---
REPOSITIONING SELF IN BED. SMALL OUTPUT FROM FRESH COLOSTOMY APPLIANCE, TOOK SENNEKOT, BUT DECLINED LACTULOSE AT HS. RESTING AFTER TAKING TRAZADONE AND 3 MG MELATONIN. ATE 100% OF DINNER AFTER DIALYSIS. NORCO AT HS FOR CHRONIC PAIN IN ENTIRE BACK ALL THE WAY UP TO HER NECK PLUS HER SHOULDERS.
[2020-11-28 09:40] VITALS: BP 92/51
--- NOTE | 2020-11-28 09:42 | NUR ---
PT LYING IN BED THIS AM AND RESTING, FINISHED WITH BREAKFAST. PT STATED SHE HAS SOME PAIN TO SHOULDERS AND LOWER BACK OF 6 ON 1-10 SCALE. PT HAS FISTULA LUE. PT ON ROOM AIR. PT LIKES LARGER MEDS FROM SMALLER MEDS. PT STATED SHE WILL TAKE LACTULOSE THIS AM. PT HAS COLOSTOMY TO LUQ WITH AIR.
--- NOTE | 2020-11-28 12:00 | NUR ---
ADM NORCO 7.5MG PO FOR PAIN TO SHOULDERS AND LOWER BACK. PT SON HERE VISITING AND BROUGHT MORE CLOTHES.
[2020-11-28 19:16] VITALS: BP 104/48
--- NOTE | 2020-11-28 23:59 | NUR ---
MEDICATED FOR CHRONIC PAIN LOW BACK TO NECK AND ACROSS SHOULDERS. PREFERS TO USE NYSTATIN UNDER BREASTS HERSELF, SHE FEELS THEY ARE HEALED ENOUGH THAT SHE WILL DISCUSS WHETHER SHE CAN USE INTERDRY INSTEAD AFTER SESSION WITH OT. COLOSTOMY INTACT.
[2020-11-29 07:15] VITALS: BP 126/71
--- NOTE | 2020-11-29 08:32 | NUR ---
OSTOMY CARE; ALERT, COOPERATIVE, REVIEWED OSTOMY CARE MANAGEMENT, ENCOURAGED TO PARTICIPATE IN CARE, POUCH CHANGED USING 2 PIECE SYSTEM CAROLINE CUT TO FIT. STOMA PINK VIABLE FLAT W/ SKIN SURFACE, PERISTOMAL SKIN INTACT, FIRM BROWN STOOL NOTED, SUPPLIES AND TEACHING INFO AT RECOMMENDTIONS; CHANGE POUCH Q 3-5 DAYS AND PRN, EMPTY PRN JAVA CORE DEVELOPER AWARE
--- NOTE | 2020-11-29 10:55 | NUR ---
Nutrition followup: pt continues on rehab unit. Eating well, average 70% of meals past several days, 100% of all meals 11/28. Continues on renal diet. Most recent weight down 10# or 6% from reported usual. Follow trends for accuracy. Would expect some fluctuations with dialysis. Pt on vitamin D, MVI, DHA and phos binder. BM 11/29. No nutrition recs, low nutrition risk.
--- NOTE | 2020-11-29 13:04 | NUR ---
ASSUMED CARE AT 0700. SLEPT FAIRLY WELL. ALERT AND ORIENTATED X 3, FORGETFUL AT TIMES. REPORTED FEELING NAUSEATED THIS MORNING AND HAD A MODERATE OF EMESIS, TREATED WITH ZOFRAN WITH GOOD RELIEF. ATE 100% OF HER BREAKFAST TODAY. OSTOMY BAG CHANGED BY BULMARO, LARGE OUTPUT. NYSTATIN POWDER APPLIED TO ABDOMINAL FOLDS, RASH IMPROVING. PARTICIPAING WITH THERAPY. NO REPORTED PAIN THIS MORNING.
--- NOTE | 2020-11-29 14:43 | PLAN ---
[facility] [place] [address] REHAB UNIT PLAN OF CARE Name: FANNY LUCIA Room #: 512-P [facility] IN M.R.#: [id number] Admission: 11/19/20 Attend Phys: Lorne Tate MD Discharge: Date of : 53 Report #: [id number] THIS REPORT FOR: cc: Selwyn Cervantes MD, Srinath MD Smithson,Lorne Phillips MD ~ DOC #: [id number] Lorne Tate MD DATE OF SERVICE: 11/22/2020 PROGRESS NOTE AND OVERALL PLAN OF CARE HISTORY OF PRESENT ILLNESS: The patient is seen today on the acute rehab ross. She is in no distress. Last recorded temperature 98.2, pulse 92, respirations 18, blood pressure 135/72. She was in no distress. She is a dialysis patient. She does have an ostomy bag. Strength is probably a grade 3+ to 4- upper and lower extremities. Lungs sounds are diminished. Cardiac exam, regular rate and rhythm. Abdomen, obese. Bowel sounds are positive. She has the ostomy bag as noted. Functionally, transfers are contact guard with lower body dressing, max assist, upper body dressing supervision. Speech therapy reveals moderate cognitive deficits with severe memory deficits. ASSESSMENT: 1. Metabolic encephalopathy. 2. Medical complexity with generalized debilitation. 3. Acute hypoxic respiratory failure, resolving. 4. Peripheral neuropathy. 5. Ventral hernia. 6. Ostomy. 7. End-stage renal disease, on hemodialysis. 8. Diabetes mellitus type 2. 9. Hypertension. 10. Hypothyroidism. PLAN: The overall plan of care is based on the pre-admission screen and information garnered from therapy assessments. 1. Estimated length of stay is probably at least 10 to 14 days. 2. Medical prognosis is reasonably good. 3. Anticipated interventions includes the interdisciplinary acute inpatient rehabilitation program. 4. Anticipated functional outcomes would be for her to again be able to transfer herself independently to the manual wheelchair as she was doing before and propel herself and to be able to toilet herself and to be independent with basic ADLs as well as improved cognition with her encephalopathy. 5. Discharge destination would be back to her assisted living facility at [facility]. [address] [address] REHAB UNIT PLAN OF CARE Name: FANNY LUCIA Room #: 512-P [facility] IN [facility]#: [id number] Admission: 11/19/20 Attend Phys: Lorne Tate MD Discharge: Date of : 53 Report #: [id number] 6. Expected therapy by discipline includes PT and OT and speech 1 hour per day each five days a week. ADDENDUM: The patient meets diagnostic criteria for an acute in-hospital inpatient rehabilitation stay. She meets the medical necessity criteria and does have multiple medical comorbidities as noted above and will need to have the involved consultants to assist while in rehabilitation. She does have the tolerance for therapies and has appropriate discharge goals back to the home setting. The patient's prognosis for significant practical improvement within a reasonable period of time appears good. Given the patient's complex medical condition and risk of further medical complication, rehabilitation services could not be safely provided at a lower level of care such as a long term facility. Lorne Tate MD DGS <ELECTRONICALLY SIGNED> By: Lorne Tate MD 11/29/20 [id number] Lorne Tate MD /nt
--- NOTE | 2020-11-29 15:55 | NUR ---
Cm faxed updates to [facility] and [facility]vo know of anticpated dc on 12/02/20. BPCI.
[2020-11-29 19:21] VITALS: BP 132/67
--- NOTE | 2020-11-29 22:07 | NUR ---
ASSUMED CARE OF PT AT 1915. PT IS A&OX4. IS ON ROOM AIR. IS STABLE. REPORTS BACK & SHOULDER PAIN THAT IS BEING MANAGED WITH ORAL MEDS & OTHER THERAPUETIC TECHNIQUES. IS UP WITH 1 ASSIST, GB, WALKER. FALL PRECAUTIONS & HOURLY ROUNDING COTNINUED THIS SHIFT. LABS & VITALS REVIEWED. PT IS ABLE TO REPOSITION SELF IN BED. CALL LIGHT WITHIN REACH. WILL CONTINUE TO MONITOR.
[2020-11-30 07:15] VITALS: BP 144/74
--- NOTE | 2020-11-30 09:03 | NUR ---
ASSUMED CARE AT 0700. PATIENT IS ALERT AND ORIENTED X3. PATIENT TADEO'S, CULTURE ROOM WORKER ARE EQUAL. LUNGS ARE CLEAR AND DEMINISHED. ABD IS SOFT WITH BSX4. COLOSTOMY IN TACT. UP IN THE W/C FOR BREAKFAST. C/O NAUSEA THIS A.M. MEDICATED WITH PRN ANTI-EMETIC S.L. PATIENT HAS LEFT UPPER ARM FISTULA WITH GOOD THRILL AND BRUIT. PLAN FOR DIALYSIS AFTER LUNCH TODAY. FALL AND SAFETY PROTOCOLS IN PLACE. DENIES PAIN AT THIS TIME. CONTINUES TO PROGRESS TOWARDS D/C GOALS. WILL CONTINUE TO MONITER.
--- NOTE | 2020-11-30 13:24 | NUR ---
Team meeting, try wean o2 if not will need to set up home oxygen. had emesis today, small amount. needs bills and pills assist. dc 12/02, BPCI, at wheel chair level, hh ( pt, ot, nursing, st ) back to [facility], cont. dialysis [facility]
[2020-11-30 19:53] VITALS: BP 119/66
--- NOTE | 2020-11-30 23:15 | NUR ---
PT ASSESSMENT COMPLETED AND VSS. MEDS GIVEN ORDERED AND WELL TOLERATED. FALL PRECAUTIONS IN PLACE. PT COLOSTOMY BAG LEAKED ALL OVER EARLY DURING SHIFT. ASST PT WITH CLEAN UP AND WASHING HER CLOTHING IN UNIT WASHING MACHINE. PT DID SELF CARE AND CUT HER OWN NEW COLOSTOMY BAG AND APPLIED. PRN PAIN MEDICATION WORKING WELL FOR PAIN. SLEEPING MEDICATION HELPFUL. SAT WNL ON 2L NC AT HS. SLEEPING WELL AT THIS TIME. WILL CONTINUE TO MONITOR FREQUENTLY.
[2020-12-01 07:15] VITALS: BP 100/64
--- NOTE | 2020-12-01 12:16 | NUR ---
ASSUMED CARE AT 0700. SLEPT WELL. ALERT AND ORIENTATED X 3, FORGETFUL. DENIES ANY PAIN OR NAUSEA THIS MORNING. APPETITE GOOD. PT HAD A LARGE BM AND OSTOMY BAG CHANGED. PARTICIPATING WITH THERAPY AND PROGRESSING TOWARDS GOAL. PLAN FOR DC ON SUNDAY.
[2020-12-01 16:17] VITALS: BP 100/64
[2020-12-01 20:07] VITALS: BP 128/49
[2020-12-01 21:00] VITALS: BP 118/56
--- NOTE | 2020-12-01 23:50 | NUR ---
PT ASSESSMENT COMPLETED AND VSS. MEDS GIVEN ORDERED AND WELL TOLERATED. FALL PRECAUTIONS IN PLACE. ASST WITH REPOSITION FOR COMFORT. COLOSTOMY BAG EMPTY AND INTACT. PRN PAIN MEDICATION HELPFUL FOR NECK/SHOULDER/AND BACK PAIN. DIALYSIS ACCESS WNL. PT DENIES NEEDS. SLEEPING WELL AFTER SLEEPING MEDICATION. WILL CONTINUE TO MONITOR FREQUENTLY.
[2020-12-02 07:53] VITALS: BP 125/57
[2020-12-02 08:30] VITALS: BP 125/57
[2020-12-02] MEDS ORDERED: LACTULOSE20 GM/30 M PO (08:35)
--- NOTE | 2020-12-02 09:04 | NUR ---
OSTOMY CARE; RESTING IN BED, AWAKE, ALERT AND COOPERATIVE, POUCH EDGES LOOSE, NEW POUCH HOLLSITER APPLIED CUT TO FIT, 2 PIECE, STOMA PINK VIABLE FLAT W/ SKIN SURFACE, PERISTOMAL SKIN INTACT, SMALL AMT SOFT BROWN STOOL PRESENT, LONG DISCUSSION W/ PT REGARDING ORDERING SUPPLIES AT DC. INFORMED PT IF SHE HAS HOME HEALTH AT HOME, THEN HOME HEALTH PER MEDICARE IS REQUIRED TO BRING OSTOMY SUPPLIES, ONCE DC FROM HOME HEALTH THEN PT WILL NEED TO ORDER HER SUPPLIES, PT GIVEN LIST OF OSTOMY SUPPLIERS, HAS SUPPLIES IN ROOM TO TAKE HOME FOR INITIAL USE, VERBAL UNDERSTANDING BY PT AND ALSO INFORMED CASE MANAGEMENT RECOMMENDATIONS; CHANGE POUCH Q 3-5 DAYS AND PRN, EMPTY PRN ONSITE CASE MANAGER AWARE RECOMMENDATIONS;
--- NOTE | 2020-12-02 09:54 | NUR ---
Cm visited with patient at bedside, she is getting ready to have breakfast. Cont. education on home health, colostomy supplies and after hh is completed she will need to have ostomy supplies set up to be delivered to her, so she will not run out. Cm notified by ANTENNA MACHINE OPERATOR that she been using prn oxygen at night. New order to saturation rest and exercise to see if she need o2 set up [facility]. cm called [facility] and they cannot set up transport until they know when dialysis will be done?
--- NOTE | 2020-12-02 10:59 | NUR ---
ASSUMED CARE AT 0700. SLEPT FAIRLY WELL. ALERT AND ORIENTATED X 3. FORGETFUL. DENIES ANY NAUSEA OR PAIN THIS MORNING. SPOKE TO DR MELLO EARLIER TODAY REGARDING HD TODAY. HE IS AWARE OF PT'S DISCHARGE AND STILL WANTS HER TO GET DIALYSED FOR A SHORTER PERIOD. SPOKE TO EVY ARMSTRONG ASSOCIATE, UPDATED ABOUT HD AND WILL CALL THE FACILITY WHEN PT IS DONE WITH HER DIALYSIS. COLOSTOMY BAG AND WAFER CHANGED BY [facility] TODAY. HAD A MODERATE AMOUNT OF STOOL IN BAG.
--- NOTE | 2020-12-02 11:55 | NUR ---
FAXED DISCHARGE ORDERS, SUMMARY AND DIALYSIS FLOW SHEETS TO [facility] AND [facility]. WILL CONFIRM THEY RECEIVED. [facility] P [phone]; FAX [phone]; [facility] [phone] [facility] [phone]; FAX [phone]
--- NOTE | 2020-12-02 12:01 | NUR ---
FAXED H&P, PROGRESS NOTES AND SATURATION W/EXERCISE RESULTS TO [facility] FOR O2. [facility] M [phone] [facility] COMMUNICATION PROFESSOR; FAX [phone]
--- NOTE | 2020-12-03 16:25 | HC ---
[facility] [place] [address] CONSULTATION Name: FANNY LUCIA Room #: 512-P [facility] IN ..#: [id number] Admission: 11/19/20 Attend Phys: Lorne Tate MD Discharge: 12/02/20 Date of : 53 Report #: [id number] THIS REPORT FOR: cc: Selwyn Cervantes MD, Srinath MD Deutch, Neal B. PhD ~ DOC #: [id number] Armin Lema, PhD DATE OF SERVICE: 11/28/2020 NEUROBEHAVIORAL STATUS EXAM ATTENDING PHYSICIAN: Lorne Tate M.D. CONSULTING PHYSICIAN: Armin Lema, PhD. CLINICAL PRESENTATION: The patient is a 65-year-old female admitted to the hospital on 11/15/2020 with shortness of breath and low-grade fever. She was diagnosed with acute hypoxic respiratory failure likely secondary to pulmonary edema versus pneumonia. The patient was weak and debilitated following her treatment and requiring additional rehabilitation. She does carry a problem list that includes COVID-19, closed head injury and chronic renal failure. She also is on end-stage renal disease. Her assessment on admission to the rehabilitation unit was medical complexity with general debilitation, metabolic encephalopathy, acute hypoxic respiratory failure, resolving; peripheral neuropathy, ventral hernia and constipation with an ostomy, end-stage renal disease on hemodialysis, type 2 diabetes mellitus, hypertension and hypothyroidism. A complete description of her medical condition and history can be found in her medical record. Neuropsychological consultation was requested to provide assistance in the assessment of cognitive and emotional status and provide recommendations and services. Prior to this most recent admission, the patient reports that she was living independently in her own home. She reports having achieved an Associate of Arts degree. The patient was very sleepy and tired during the interview and provided limited historical information. She has one child and one granddaughter. TECHNIQUES UTILIZED: Clinical interview, review of medical records, staff consultation, behavioral observation, mini mental status exam 2 standard version, clock drawing. EXAMINATION FINDINGS: The patient was difficult to arouse during the assessment. She was quite drowsy and required frequent encouragement to maintain alertness. She does not report auditory or visual hallucinations or present with aphasia. Her symptoms are reported to include sleep, difficulty [facility] [address] [place] [address] CONSULTATION Name: FANNY LUCIA Room #: 512-P [facility] [place] [facility]#: [id number] Admission: 11/19/20 Attend Phys: Lorne Tate MD Discharge: 12/02/20 Date of : 53 Report #: [id number] with memory, depression and anxiety. Previous treatment for depression is reported. The patient does not report difficulty with appetite. Performance on the MMSE 2 brief version was impaired with a raw score of 13 and 16. She was 3/3 for initial registration, 5/5 for orientation to time and place. She is 0/3 for immediate recall of 3 items after a brief time delay and distraction. Performance on the MMSE 2 standard version was 22 of 30 and in the impaired range. She was 1/5 for serial sevens, 2/2 for naming, 1/1 for repetition, 3/3 for comprehension. She was able to read and follow a single command. The patient was unable to copy a simple geometric design and had difficulty with generating a sentence. She could not draw a clock adequately into the numbers. Myoclonus was noted during the assessment. The patient is presenting with impairment in memory, sustained concentration and attention and visual spatial construction. She is alert and oriented, but likely has a variability in maintaining sustained attention. DIAGNOSTIC IMPRESSION: Major neurocognitive disorder (dementia), likely due to medical etiology including hypoxic respiratory failure and renal disease without behavior disorder -- extent to be determined, likely in the mild range with help needed for medication and finances. Unspecified anxiety disorder with depression. RECOMMENDATIONS: Continued use of antidepressant medication. Reduce as medically appropriate sedating medications that could be contributing to her difficulty in maintaining arousal. Her family will need to provide assistance in the management of medication finances and nutrition. Continued speech therapy will be of benefit to assist in compensatory technique and cognitive stimulation. Thank you very much for allowing me to provide the consultation on this patient. Armin Lema, PhD [facility] [address] CONSULTATION Name: FANNY LUCIA Room #: 512-P [facility] [place] M.R.#: [id number] Admission: 11/19/20 Attend Phys: Lorne Tate MD Discharge: 12/02/20 Date of : 53 Report #: [id number] <ELECTRONICALLY SIGNED> By: Armin Lema, PhD 12/03/20 1625 [id number] [id number] Armin Lema, PhD /nt
== END 2020-12-02 16:00 | disposition home health service (06) | DRG 91 ==
PROVIDERS: Nurse Practitioner; Nurse Practitioner Family; ADMIT Physical Medicine & Rehabilitation; ATTEND Physical Medicine & Rehabilitation
PROC: 5A1D70Z Performance of Urinary Filtration, Intermittent, Less than 6 Hours Per Day (ICD-10-PCS; principal; 2020-11-21)
PROC: 5A1D70Z Performance of Urinary Filtration, Intermittent, Less than 6 Hours Per Day (ICD-10-PCS; 2020-11-22)
PROC: 5A1D70Z Performance of Urinary Filtration, Intermittent, Less than 6 Hours Per Day (ICD-10-PCS; 2020-11-27)
PROC: 5A1D70Z Performance of Urinary Filtration, Intermittent, Less than 6 Hours Per Day (ICD-10-PCS; 2020-11-30)
DX: G92 Toxic encephalopathy (principal); J96.01 Acute respiratory failure with hypoxia; N18.6 End stage renal disease; J18.9 Pneumonia, unspecified organism; I12.0 Hypertensive chronic kidney disease with stage 5 chronic kidney disease or end stage renal disease; Z99.2 Dependence on renal dialysis; E03.9 Hypothyroidism, unspecified; E11.22 Type 2 diabetes mellitus with diabetic chronic kidney disease; K59.00 Constipation, unspecified; K43.9 Ventral hernia without obstruction or gangrene; R53.81 Other malaise; M32.9 Systemic lupus erythematosus, unspecified; G89.29 Other chronic pain; F41.9 Anxiety disorder, unspecified; M19.90 Unspecified osteoarthritis, unspecified site; M79.7 Fibromyalgia; M35.00 Sjogren syndrome, unspecified; J45.909 Unspecified asthma, uncomplicated; E11.42 Type 2 diabetes mellitus with diabetic polyneuropathy; E78.5 Hyperlipidemia, unspecified; M10.9 Gout, unspecified; G25.81 Restless legs syndrome; K58.9 Irritable bowel syndrome, unspecified; F32.9 Major depressive disorder, single episode, unspecified; F01.50 Vascular dementia, unspecified severity, without behavioral disturbance, psychotic disturbance, mood disturbance, and anxiety; K21.9 Gastro-esophageal reflux disease without esophagitis; E66.01 Morbid (severe) obesity due to excess calories; D63.8 Anemia in other chronic diseases classified elsewhere; Z88.0 Allergy status to penicillin; Z91.048 Other nonmedicinal substance allergy status; Z91.040 Latex allergy status; Z88.2 Allergy status to sulfonamides; Z88.1 Allergy status to other antibiotic agents; Z88.8 Allergy status to other drugs, medicaments and biological substances; Z79.899 Other long term (current) drug therapy; Z87.440 Personal history of urinary (tract) infections; Z68.25 Body mass index [BMI] 25.0-25.9, adult; Z86.711 Personal history of pulmonary embolism; Z98.891 History of uterine scar from previous surgery; Z93.3 Colostomy status; Z99.3 Dependence on wheelchair
CPT/HCPCS: 10112; 32100